=== PATIENT | female | born 1955 | race Caucasian/White ===

== ENCOUNTER 2021-03-01 13:28 | Outpatient (RCR) | payer MEDICARE, MEDICAID, SELFPAY ==
--- NOTE | 2021-03-01 14:42 | PTOPEVAL ---
PHYSICAL THERAPY WHEELCHAIR EVALUATION/DISCHARGE Thank you for referring Henna Melgar to [facility] [place].? Mrs. Melgar is a 65 y/o female evaluated today for an electric w/c. The patient was assessed using the Seating/Mobility Evaluation form-accessible in the scanned chart with details. The evaluation is complete and [facility] will be completing a home assessment and delivering her chair. D/C PT at this time. Please review, sign, date and return this plan of care. I agree with and certify the following plan of care. Referring Physician Date Attending Provider: Alysha Gordon NP
--- NOTE | 2021-03-01 14:58 | PTOPEVAL ---
PHYSICAL THERAPY WHEELCHAIR EVALUATION/DISCHARGE Thank you for referring Henna Melgar to [facility].? Mrs. Melgar is a 65 y/o female evaluated today for an electric w/c. The patient was assessed using the Seating/Mobility Evaluation form-accessible in the scanned chart with details. The evaluation is complete and [facility] will be completing a home assessment and delivering her chair. D/C PT at this time. Please review, sign, date and return this plan of care. I agree with and certify the following plan of care. Referring Physician Date Attending Provider: Alysha Gordon NP *PT Outpatient Evaluation Start: 03/01/21 14:37 Freq: Status: Active Protocol: Document 03/01/21 13:30 MLV (Rec: 03/01/21 14:58 MLV [id number]) Therapy Assessment Status Assessment Status Evaluation Pain Assessment Pain Scale Pain Scale Used Numeric (1 - 10) Self Report Pain Assessment Bilateral Leg(s) Reported Pain Level 9 Pain Description Aching,Burning Pain Frequency Chronic Lowest Pain Intensity 5 Pain Aggravating Factors Exercise/Activity,Prolonged Position,Supine Pain Score Pain Score 9: Self Report Interventions Used Interventions Used By Clinicians Education Pain Relief Interventions Used By Position Change,Sitting Patient PT Clinical Summary Mrs. Melgar is a 65 y/o female evaluated with a dx of lumbar spine fractures with neuropathy and multiple comorbidities. The evaluation is for an electric wheelchair assessment; pt has one prior but is now unable to be repaired and needs a new one. The patient was evaluated with mobility evaluation form-see scanned copy in chart for details. Pt qualifies for an electric chair and pt to be assessed in her home and receive a chair through [facility]. D/C PT following w/c assessment.
== END 2021-05-15 09:12 | disposition home or self-care (01) ==
LOC: ANHPT 13:28
PROVIDERS: PCP Internal Medicine; Visit Provider Nurse Practitioner
DX: S32.009S Unspecified fracture of unspecified lumbar vertebra, sequela (principal)
CPT/HCPCS: 97162

== ENCOUNTER 2024-05-17 07:05 | Inpatient (IN) | payer MEDICARE, MEDICAID, SELFPAY ==
[2024-05-16] VITALS (10 sets, daily range): BP systolic 100–106; BP diastolic 48–60; PULSE 113–130; RESP 18–22; TEMP 36.4–36.6; O2SAT 88–99; BMI 20.9
--- NOTE | 2024-05-16 18:00 | ADMGEN ---
This patient, Henna Arredondo Singler, was admitted to Medical Room 249-. Patient/family oriented to hospital policies and general routines including ID bracelet, bed and alarms, visiting hours, pain management, procedures, bathroom and other care routines, personal items, smoking policy, room service/diet, and visiting hours. Information on how to activate the Rapid Response Team has been discussed. Patient/Family are encouraged to report perceived risks to care and to ask questions if they do not understand what they are told or what they should do.
--- NOTE | 2024-05-16 18:56 | ECG_ITS ---
Test Date: 2024-05-16 19:10:54 Measurements Intervals [place] Rate: 116 P: 234 NM: 149 QRS: 204 QRSD: 83 T: 244 QT: 318 QTc: 443 Interpretive Statements ECTOPIC ATRIAL TACHYCARDIA MARKED RIGHT AXIS DEVIATION [QRS AXIS > 100] LOW QRS VOLTAGE IN EXTREMITY LEADS [QRS DEFLECTION < 0.5 mV IN LIMB LEADS] No previous ECG available for comparison Electronically Signed On 05-17-2024 12:59:38 CDT by Colton Wisdom M.D.
--- NOTE | 2024-05-16 18:57 | WPDCN ---
Assessment and Plan Assessment and plan (1) Sepsis: Code(s): A41.9 - Sepsis, unspecified organism Status: Acute Assessment and Plan: Patient meets sepsis criteria with tachycardia, tachypnea, hypotension, and leukocytosis in the setting of cholecystitis. Lactic acid levels within normal limits. Blood pressures are improving with IV fluid rehydration. Blood cultures have been obtained and are pending. Transfer to IMU for closer monitoring. (2) Cholecystitis with cholelithiasis: Code(s): K80.10 - Calculus of gallbladder with chronic cholecystitis without obstruction Status: Acute Assessment and Plan: Continue Zosyn. Plans for percutaneous cholecystostomy tube per Dr. Pham. (3) Acute respiratory failure with hypoxia: Code(s): J96.01 - Acute respiratory failure with hypoxia Status: Acute Assessment and Plan: Likely due to a combination of factors including IV narcotics, sepsis, and COPD. PE is considered given acute increase in oxygen requirements; CTA ordered. Continue to wean oxygen as tolerated. (4) Chronic obstructive pulmonary disease: Code(s): J44.9 - Chronic obstructive pulmonary disease, unspecified Status: Acute Assessment and Plan: Mild wheezing on exam but not significant. Scheduled bronchodilators; hold on steroids for now. (5) Coronary artery disease: Code(s): I25.10 - Atherosclerotic heart disease of hoh coronary artery without angina pectoris Status: Acute Assessment and Plan: Patient had a stent placed several years ago. No acute issues; she is denying chest pain. Plan Thank you for allowing us to participate in this patient's care. Please do not hesitate to contact us with any questions. HPI Data of Consult Date/Time: 05/16/24 19:00 Requesting Physician: Pepe Pham MD Consult Narrative Reason for consult: Medical management. Narrative: This is a 68-year-old female former smoker with chronic obstructive pulmonary disease, hyperlipidemia, and coronary artery disease with history of [place] and stent several years ago who is a direct admit to the medical floor this evening to Dr. Pham from the medical floor [facility] for acute cholecystitis with cholelithiasis. The patient presented to their facility yesterday with right upper quadrant pain and decreased appetite for nearly 1 weeks time. Pertinent labs at the time of her ER visit included WBC count of 16.5, hemoglobin 13.0, platelet 288, lactic acid 0.9, sodium 131, potassium 4.1, BUN 18, creatinine 0.35, AST 23, ALT 9, alkaline phosphatase 92, total bilirubin 0.7. CT of the abdomen/pelvis a large, distended gallbladder with stones and wall thickening consistent with cholecystitis. She was started on Zosyn and IV fluids and was admitted to their floor. Labs today showed an increase in her WBC count to 21.4 and a sodium of 136. This morning she was evaluated by their surgeon who recommends percutaneous cholecystostomy tube with plans for interval cholecystectomy at a later date. Transfer was initiated to [facility] as they do not have interventional radiology. According to the receiving nurse at [facility], the report she received from his nurse at [place] made it seem as though the patient was stable and appropriate for a medical floor. Before the patient left their facility, a rapid response was called as her blood pressure dropped while she was being transferred from her bed to the stretcher. EMS reports initial blood pressure of 79/45 for which she was given a 500 mL fluid bolus with improvement in her systolic pressures into the 90s over 50s. She was also tachycardic, tachypneic, and hypoxic. According to EMS, they were assured the patient was safe for transfer. EMS personnel phoned the receiving nurse here at [facility] when they were close to the hospital with updates on the patient's change in status, wondering if they should instead bring her
[2024-05-16 19:27] LABS: Alveolar/Arterial O2 Gradient 153.3 mmHg; Carboxyhemoglobin 1.1 % THb (0-2.0); Device NASAL CANNULA; Fractional Inspired Oxygen 40 %; HCO3 ABG 25.8 mEq/l (22.0-26.0); Methemoglobin ABG 0.1 %THb (0-1.5); Modified Allen's Test Pass; Oxygen Content ABG 16.9 %vol (16.0-22.0); Oxyhemoglobin 92.3 % THb (90.0-100.0); PO2 ABG 72.1 mmHg (80.0-100.0); Reduced Hemoglobin 6.5 %THb (0-5.0); Site Drawn RIGHT RADIAL; pH ABG 7.314 (7.350-7.450)
[2024-05-16] MEDS: IPRATROPIUM 0.5 MG/ALBUTEROL SULFATE 2.5 MG AMPUL.NEB 3 ML INHALATION (20:00)
[2024-05-16 20:25] LABS: Basophils Absolute Auto 0.1 K/mm3 (0.0-0.1); Basophils Percent Auto 0.2 % (0.2-1.2); Hematocrit 38.3 % (37.0-47.0); Hemoglobin 12.2 g/dL (12.0-15.0); Immature Granulocyte Percent A 0.9 % (0-0.5); Lymphocytes Percent Auto 1.2 % (18.3-44.2); Mean Corpuscular HGB Conc 31.9 g/dl (32-36); Mean Corpuscular Hemoglobin 28.6 pg (26-34); Mean Corpuscular Volume 89.9 fl (80-100); Mean Platelet Volume 10.5 fl (7.4-10.4); Monocytes Absolute Auto 2.4 K/mm3 (0.1-0.6); Neutrophils Absolute Auto 30.9 K/mm3 (1.3-6.7); Neutrophils Percent Auto 90.7 % (45.5-73.1); Platelet Count Result 315 k/mm3 (150-375); Red Blood Count 4.26 M/mm3 (4.2-5.4); Red Cell Distribution Width 13.5 % (11.5-14.5); White Blood Count 34.1 K/mm3 (4.5-10.0)
[2024-05-16 20:36] LABS: Alanine Aminotransferase 8 U/L (6-35); Albumin Level 3.2 g/dL (3.5-5.1); Alkaline Phosphatase 98 U/L (38-126); Anion Gap 5 mmol/L (4-12); Aspartate Amino Transferase 29 U/L (14-36); Bilirubin,Total 0.8 mg/dL (0.2-1.3); Blood Urea Nitrogen 20 mg/dL (7-17); Calcium 8.3 mg/dL (8.4-10.2); Carbon Dioxide 31 mmol/L (22-30); Chloride 102 mmol/L (98-107); Estimated CRCL calculation 69 ml/min; Estimated Glomerular Filt Rate > 60; Glucose 97 mg/dL (65-110); INR 1.5; Lactic Acid Reflex 1.2 mmol/L (0.7-2.0); Magnesium 2.4 mg/dL (1.6-2.3); Potassium 3.7 mmol/L (3.4-5.0); Prothrombin Time 18.2 Seconds (11.1-14.7); Sodium 138 mmol/L (137-145)
[2024-05-16 20:45] LABS: NT Pro B Type Natriuretic Pept 1490 pg/mL (19.9-100)
[2024-05-16 20:48] LABS: D Dimer 2.04 ug/mL (<0.48); Partial Thromboplastin Time 35.5 Seconds (22.3-36.8)
[2024-05-16 20:53] LABS: Procalcitonin 1.1 ng/mL
--- NOTE | 2024-05-16 21:04 | PC.NURSE ---
This patient, Henna Arredondo Singler, was received from - on 05/16/24 at 2035. Patient/family oriented to unit policies and routines
[2024-05-16] MEDS: SODIUM CHLORIDE 0.9% IV 1,000 ML 100 ML IV CONT (21:41)
[2024-05-16] MEDS: PIPERACILLN/TAZ 3.375GM/NS50ML 3.375 GM/50 ML BAG IVPB (21:43)
[2024-05-17] VITALS (20 sets, daily range): BP systolic 98–109; BP diastolic 42–53; PULSE 86–120; RESP 18–22; TEMP 36.6–37.1; O2SAT 91–98
--- NOTE | ~2024-05-17 | XR_ITS ---
EXAMINATION: XR barium swallow modified DATE: 05/20/2024 11:08 INDICATION: Cough. Dysphagia. TECHNIQUE: The patient was given barium-containing material of multiple consistencies to swallow by t marcell speech pathologist while I performed fluoroscopy. Fluoroscopy exposure time was 1.2 minutes. The n umber of fluoroscopy images saved to the PACS was 1. Dose-area product was 0.821 Gy-cm^2. FINDINGS: There is vallecular residue. No laryngeal penetration or aspiration. IMPRESSION: 1. No laryngeal penetration or aspiration. 2. Please refer to the speech therapy report for recommendations. Reviewed, dictated and finalized at location A.
--- NOTE | ~2024-05-17 | XR_ITS ---
XR chest 1V portable Ordering provider: Nataliia Man PA-C History: 68 years Female with . hypoxia . Comparison: None. FINDINGS: MEDIASTINUM: The cardiac silhouette is slightly LUNGS: No pneumothorax. Opacification in the left lung base is noted. Lucent areas are projected over the left lower chest which may indicate eventration of the diaphragm or diaphragmatic hernia CT eval uation advised. OTHER: No free air under the diaphragm. Postoperative changes in the spine. IMPRESSION: Left basal atelectasis versus pneumonia. Bowel shadows are projected over the left lower lobe area possibility of eventration of the left ashley diaphragm or diaphragmatic hernia is not excluded. CT evaluation advised. Reviewed, dictated and finalized at location A. IMPRESSION: Left basal atelectasis versus pneumonia. Bowel shadows are projected over the left lower lobe area possibility of eventr ation of the left hemidiaphragm or diaphragmatic hernia is not excluded. CT jaqui luation advised.
--- NOTE | ~2024-05-17 | CT_ITS ---
EXAMINATION: CTA chest abdomen pelvis DATE: 05/17/2024 03:31 INDICATION: Hypoxia, tachycardia and cholecystitis TECHNIQUE: Computed tomographic angiography (CTA) of the chest, abdomen and pelvis was performed with 150 cc of Omnipaque-350 intravenous contrast. Additional 3D reconstructions utilizing rotating maxim um intensity projection (MIP) were performed. Automated exposure control and iterative reconstruction technique were employed. The dose-length product was 314.86 mGy-cm. COMPARISON: None FINDINGS: Thoracic aorta is normal in caliber with small amount of nonhemodynamically significant atherosclerot ic plaque but no aneurysm or dissection. Severe emphysema. Calcified right lower lobe nodule along wi th calcite right hilar and mediastinal lymph nodes consistent with old granulomatous disease. Large h iatal hernia containing the majority of the stomach as well as the hepatic flexure of the colon. Ther e is compressive atelectasis at the basilar left lower lobe. Small bilateral pleural effusions. Heart size is normal. Atherosclerotic coronary artery calcifications. No pericardial effusion. No patholog ically enlarged abdominal or pelvic lymphadenopathy. There are calcified gallstones within the dilated gallbladder which demonstrate edematous wall thicke mattie and pericholecystic inflammatory stranding consistent with acute cholecystitis. This suggests an obstructing gallstone at the neck of the gallbladder heterogeneous attenuation of the liver which co uld be related to right hepatic lobe predominant hepatic steatosis or transient hepatic attenuation d ifference related to phase of contrast. Heterogeneous enhancement in the spleen also likely related t o phase of contrast. Pancreas, bilateral adrenal glands and kidneys are normal. Infrarenal IVC filter in expected position. Small amount of likely reactive ascites scattered through out the abdomen and pelvis. Marked sigmoid predominant diverticulosis without adjacent inflammatory s tranding to suggest diverticulitis. Moderate-sized right indirect inguinal hernia containing a small amount of ascites and a few loops of nonobstructed small bowel. No dilated bowel to suggest obstructi on. Bladder, uterus and adnexa are unremarkable. There is calcified atherosclerosis of the aorta and many of the other arteries. There is also presacral edema. Small fat-containing umbilical hernia. No pathologically enlarged abdominal or pelvic lymphadenopathy. Chronic T12 burst fracture and T11 and L1 compression fractures. There is been prior T12 laminectomy which is spanned by instrumented posterior spinal fusion with bilateral vertical debra and pedicle scre ws extending from T9 through L3 sparing the pedicles at T12. IMPRESSION: 1. Cholelithiasis and acute cholecystitis likely reactive small amount of ascites throughout the abdo men and pelvis. 2. Severe emphysema with small bilateral pleural effusions and atelectasis in the basilar left lower lobe. 3. Large hiatal hernia containing the majority the stomach and the splenic flexure of the colon. 4. Normal caliber aorta with no aneurysm or dissection but with prominent atherosclerosis along the a bdominal aorta and its major branches. 5. IVC filter in expected position. 6. Moderate size right inguinal hernia containing nonobstructed small bowel and small amount of ascit es. 7. small fat-containing umbilical hernia. 8. Prominent sigmoid diverticulosis. Reviewed, dictated and finalized at location A. IMPRESSION: 1. Cholelithiasis and acute cholecystitis likely reactive small amount of ascit es throughout the abdomen and pelvis. 2. Severe emphysema with small bilateral pleural effusions and atelectasis in t he basilar left lower lobe. 3. Large hiatal hernia containing the majority the stomach and the
--- NOTE | ~2024-05-17 | US_ITS ---
EXAMINATION: US perc cholecystostomy w imag DATE: 05/17/2024 13:28 INDICATION: Acute cholecystitis TECHNIQUE: The procedure including the risks and benefits was discussed with the patient. Risks discu ssed included bleeding including hemorrhage and bile peritonitis. Oral and written consent were obtai steffen. The patient was confirmed to be receiving appropriate antibiotic coverage. The skin overlying t he liver and gallbladder was prepped and draped in usual sterile fashion. Anesthetic was administere d with 1% lidocaine subcutaneously. Conscious sedation was provided by the anesthesiology service. An 8.5 Fr catheter was inserted through liver parenchyma into the gallbladder by trocar technique. Th e metal stiffener and trocar needle were removed, and the pigtail tip was locked. Bile was aspirated and sent for culture. The catheter was stitched to the skin with suture. Antibiotic ointment and a st erile dressing were applied. An additional adhesive fixation device was applied. There were no immedi ate complications. FINDINGS: The gallbladder is dilated with wall thickening and stones and sludge, consistent with acut e cholecystitis. Ultrasound images demonstrate the catheter within the gallbladder. 50 mL of dark mary ckish colored bile was aspirated and sent to the lab for Gram stain and aerobic, anaerobic and fungal cultures. Final images show the formed pigtail catheter tip in the gallbladder. IMPRESSION: 1. Successful ultrasound-guided cholecystostomy tube placement. 2. 50 mL bile was sent for aerobic, anaerobic, and fungal cultures. 3. The catheter will be managed by Dr. Pham. A catheter cholangiogram may be performed not less than 48 hours after tube placement if clinically indicated to assess cystic duct patency. If cholecystect yue is not eventually performed and the infectious episode has resolved, the tube may be removed over a guidewire, preferably not less than 3 weeks after placement to allow time for a mature catheter tr act to form to prevent bile leakage and peritonitis. Reviewed, dictated and finalized at location A. IMPRESSION: 1. Successful ultrasound-guided cholecystostomy tube placement. 2. 50 mL bile was sent for aerobic, anaerobic, and fungal cultures. 3. The catheter will be managed by Dr. Pham. A catheter cholangiogram may be pe rformed not less than 48 hours after tube placement if clinically indicated to assess cystic duct patency. If cholecystectomy is not eventually performed and the infectious episode has resolved, the tube may be removed over a guidewire, preferably not less than 3 weeks after placement to allow time for a mature ca theter tract to form to prevent bile leakage and peritonitis.
--- NOTE | ~2024-05-17 | XR_ITS ---
XR chest 1V portable 05/20/2024 13:14 Indication: Hypoxia and tachycardia Procedure: AP portable chest Comparison: 05/16/2024 Findings: Bibasilar airspace disease. There is residual contrast in the stomach. Elevated left diaphr agm. Small pleural effusions. No pneumothorax. Partial right lung resection. There are Castrejon debra s partially visualized. Impression: 1: Bibasilar airspace disease, compatible with pneumonia. Consider aspiration. 2: Small pleural effusions. Reviewed, dictated and finalized at location B. Impression: 1: Bibasilar airspace disease, compatible with pneumonia. Consider aspiration. 2: Small pleural effusions.
[2024-05-17] MEDS: PIPERACILLN/TAZ 3.375GM/NS50ML 3.375 GM/50 ML BAG IVPB ×4 (02:49→21:28)
[2024-05-17 04:18] LABS: Hematocrit 38.7 % (37.0-47.0); Hemoglobin 11.7 g/dL (12.0-15.0); Mean Corpuscular HGB Conc 30.2 g/dl (32-36); Mean Corpuscular Hemoglobin 28.2 pg (26-34); Mean Corpuscular Volume 93.3 fl (80-100); Mean Platelet Volume 10.4 fl (7.4-10.4); Platelet Count Result 308 k/mm3 (150-375); Red Blood Count 4.15 M/mm3 (4.2-5.4); Red Cell Distribution Width 13.6 % (11.5-14.5); White Blood Count 26.8 K/mm3 (4.5-10.0)
[2024-05-17 04:37] LABS: Alanine Aminotransferase 12 U/L (6-35); Albumin Level 2.9 g/dL (3.5-5.1); Alkaline Phosphatase 84 U/L (38-126); Anion Gap 5 mmol/L (4-12); Aspartate Amino Transferase 32 U/L (14-36); Bilirubin,Total 0.8 mg/dL (0.2-1.3); Blood Urea Nitrogen 22 mg/dL (7-17); Calcium 8.1 mg/dL (8.4-10.2); Carbon Dioxide 30 mmol/L (22-30); Chloride 103 mmol/L (98-107); Estimated CRCL calculation 69 ml/min; Estimated Glomerular Filt Rate > 60; Glucose 77 mg/dL (65-110); Potassium 3.2 mmol/L (3.4-5.0); Sodium 138 mmol/L (137-145)
[2024-05-17 06:03] LABS: Alveolar/Arterial O2 Gradient 110.8 mmHg; Base Excess ABG -0.2 mEq/l (+/-2.0); Fractional Inspired Oxygen 32 %; Modified Allen's Test Pass; Oxygen Content ABG 15.6 %vol (16.0-22.0); Oxygen Saturation ABG 92.8 % (95.0-100.0); Oxyhemoglobin 92.4 % THb (90.0-100.0); PCO2 ABG 43.4 mmHg (35.0-45.0); PO2 ABG 66.6 mmHg (80.0-100.0); PO2 FiO2 Ratio Arterial Blood 2.08 %; Site Drawn LEFT RADIAL; pH ABG 7.379 (7.350-7.450)
[2024-05-17 06:04] LABS: Device NASAL CANNULA
[2024-05-17] MEDS: SODIUM CHLORIDE 0.9% IV 1,000 ML 100 ML IV CONT (10:58)
[2024-05-17] MEDS: MORPHINE SULFATE (*CRX) 2 MG/ML INJ 1 MG IV PUSH (11:39)
--- NOTE | 2024-05-17 14:24 | PM.IMHP ---
H&P: HPI History of Present Illness Date/Time: 05/17/24 14:24 Chief Complaint: Acute cholecystitis secondary to cholelithiasis and sepsis Narrative: patient is a 5-year-old female who has had a 1 week history of epigastric and right upper quadrant abdominal pain. She presented to [facility] 2 days ago and was admitted to the hospital with findings of acute cholecystitis secondary to cholelithiasis on CT scan. [place] [address] but was afebrile and was not tachycardic. She was started on Zosyn for IV antibiotics and kept NPO. Her pain persisted through the night and she received multiple doses of morphine for pain control. The next day her white blood count was repeated and it was not elevated 21,000. Her pain was getting worse. I felt she would do much better with decompression of the gallbladder with placement of a cholecystostomy tube to drain the gallbladder rather than attempt a laparoscopic cholecystectomy which would have a high risk conversion to open cholecystectomy. Subsequent she was then transferred from [facility] to [facility] for further management due to the availability of an interventional radiologist here at [place]. She did get some pain medicine prior to being transferred and around she needed increased oxygen and has decreased level of consciousness. She was immediately evaluated by the hospitalist service when she was admitted and by that time her breathing was better and she was more responsive. Her white blood count was checked when she arrived and was 34,000. she was restarted on all the IV antibiotics and transferred to the IMU for further monitoring. Her pain was a better with doses of morphine. Blood cultures were obtained and she remained stable overnight. This morning she still had right upper quadrant abdominal pain. Her white blood cell count was still markedly elevated she was still having pretty severe right upper quadrant pain without generalized peritoneal signs. I talked to the our radiologist and he agreed that placement of a cholecystostomy tube would probably help her the most and so he arrange to have the cholecystostomy tube placed. This afternoon the patient feels much better and having last right upper quadrant pain since the cholecystostomy tube was placed. Cultures and Gram stain of the gallbladder fluid were ready sent. Drainage coming out of the cholecystostomy tube now was thick nonpurulent and nonbloody bile. She would like to have something to drink. Her previous medical history includes having had a myocardial infarction and placement of coronary stents in the past. She is not on a antiplatelet therapy other than a baby aspirin. She also was a smoker and has COPD. She states she quit smoking about 1 month ago. She denies any diabetes. Review of Systems Review of Systems: The remainder of the review of systems to include constitutional, HEENT, cardiovascular, respiratory, GI, , integumentary, musculoskeletal, endocrine, immunologic, hematologic, psychiatric, and neurologic are all negative except for which is mentioned above in the HPI. [facility] Past Medical History Medical History Broken back 2008 per patient COPD (chronic obstructive pulmonary disease) Depression Heavy tobacco smoker who smokes more than 10 cigarettes per day HTN (hypertension) Hyperlipidemia Surgical History Surgical History History of lung surgery lung resection 2002 History of surgery groin Hx of cataract surgery Hx of heart artery stent Family History Family History Father Type 2 diabetes mellitus Mother Acute myocardial infarction Sibling Multiple sclerosis Daughter Multiple sclerosis Social History Social History (Reviewed 05/17/24 @
[2024-05-17] MEDS: POTASSIUM CHLORIDE 20 MEQ PACKET (FOR LIQUID) 40 MEQ PO (15:53)
[2024-05-17] MEDS: KCL 20 MEQ/0.45% NS 1,000 ML 90 ML IV CONT (16:43)
[2024-05-17] MEDS: IPRATROPIUM 0.5 MG/ALBUTEROL SULFATE 2.5 MG AMPUL.NEB 3 ML INHALATION (19:14)
[2024-05-18] VITALS (25 sets, daily range): BP systolic 110–128; BP diastolic 42–62; PULSE 71–110; RESP 16–20; TEMP 36.1–36.6; O2SAT 91–98
[2024-05-18] MEDS: IPRATROPIUM 0.5 MG/ALBUTEROL SULFATE 2.5 MG AMPUL.NEB 3 ML INHALATION ×4 (02:00→21:00)
[2024-05-18] MEDS: PIPERACILLN/TAZ 3.375GM/NS50ML 3.375 GM/50 ML BAG IVPB ×4 (03:01→20:47)
[2024-05-18] MEDS: KCL 20 MEQ/0.45% NS 1,000 ML 90 ML IV CONT (04:37)
[2024-05-18 04:41] LABS: Basophils Absolute Auto 0.1 K/mm3 (0.0-0.1); Basophils Percent Auto 0.3 % (0.2-1.2); Eosinophils Percent Auto 0.2 % (0-4.4); Hematocrit 31.5 % (37.0-47.0); Hemoglobin 9.4 g/dL (12.0-15.0); Immature Granulocyte Absolute 0.12 K/mm3 (0.00-0.031); Immature Granulocyte Percent A 0.7 % (0-0.5); Lymphocytes Absolute Auto 1.19 K/mm3 (0.9-3.2); Lymphocytes Percent Auto 6.8 % (18.3-44.2); Mean Corpuscular HGB Conc 29.8 g/dl (32-36); Mean Corpuscular Hemoglobin 28.5 pg (26-34); Mean Corpuscular Volume 95.5 fl (80-100); Mean Platelet Volume 10.6 fl (7.4-10.4); Monocytes Absolute Auto 0.9 K/mm3 (0.1-0.6); Neutrophils Absolute Auto 15.2 K/mm3 (1.3-6.7); Platelet Count Result 290 k/mm3 (150-375); Red Cell Distribution Width 14.1 % (11.5-14.5); White Blood Count 17.5 K/mm3 (4.5-10.0)
[2024-05-18 05:05] LABS: Alanine Aminotransferase 6 U/L (6-35); Albumin Level 2.6 g/dL (3.5-5.1); Alkaline Phosphatase 72 U/L (38-126); Anion Gap 7 mmol/L (4-12); Anisocytosis 1+; Aspartate Amino Transferase 26 U/L (14-36); Bilirubin,Total 0.6 mg/dL (0.2-1.3); Blood Urea Nitrogen 22 mg/dL (7-17); Calcium 7.8 mg/dL (8.4-10.2); Carbon Dioxide 23 mmol/L (22-30); Chloride 108 mmol/L (98-107); Estimated CRCL calculation 84 ml/min; Estimated Glomerular Filt Rate > 60; Glucose 49 mg/dL (65-110); Hypochromasia 1+; Microcytosis 1+ (NORMAL); Platelet Estimate Adequate (Adequate); Potassium 3.8 mmol/L (3.4-5.0); Sodium 138 mmol/L (137-145)
[2024-05-18 05:06] LABS: Burr Cells 1+; Schistocytes None Seen
[2024-05-18] MEDS: DEXTROSE 50% 25 GM/50 ML SYRINGE IV PUSH (05:19)
[2024-05-18 05:22] LABS: Glucose Point of Care 38 mg/dl (65-105)
[2024-05-18 05:40] LABS: Glucose Point of Care 162 mg/dl (65-105)
[2024-05-18] MEDS: ENOXAPARIN 40 MG/0.4 ML SYRINGE SUB-Q (08:59)
[2024-05-18] MEDS: ACETAMINOPHEN 500 MG TABLET 1000 MG PO ×2 (11:45→20:47)
--- NOTE | 2024-05-18 14:10 | PM.PNGS ---
Progress Note: A&P Assessment and Plan (1) Cholecystitis with cholelithiasis: Code(s): K80.10 - Calculus of gallbladder with chronic cholecystitis without obstruction Status: Acute Assessment and Plan: Improving s/p cholecystostomy tube placement on 05/17. Bile cultures pending. Tolerating a clear liquid diet. WBC trending down and her abdominal pain is improving. No longer requiring IV Morphine. Continue IV antibiotics. Will advance to full liquids and decrease her IV fluids. Will transfer her out of the IMU to med/surg floor today with continuous pulse oximetry. Eventually, we would plan for an interval laparoscopic cholecystectomy in about 6 weeks once she is stabilized. (2) Sepsis: Code(s): A41.9 - Sepsis, unspecified organism Status: Acute Assessment and Plan: Resolving. Hemodynamically stable, tachycardia resolved. WBC trending down. Blood cultures are pending. Continue IV antibiotics to cover for the cholecystitis and Gram-negative organisms. (3) Chronic obstructive pulmonary disease: Code(s): J44.9 - Chronic obstructive pulmonary disease, unspecified Status: Acute Assessment and Plan: Currently on Duoneb and remains stable. Nursing weaning down her oxygen. Will keep continuous pulse oximetry initially since she has been desaturating at times. (4) Coronary arteriosclerosis: Code(s): I25.10 - Atherosclerotic heart disease of [place] coronary artery without angina pectoris Status: Acute Assessment and Plan: History of coronary artery stents. No complaints of chest pain. Plan I have discussed the patient's case and plan of care with Dr. Pham. Subjective Subjective Date/Time Seen: 05/18/24 14:10 Patient reports: tolerating liquids well and afebrile Interval history: Patient was a direct admission from [place] by Dr. Pham for acute cholecystitis, sepsis, and acute respiratory failure. Chart reviewed. S/p cholecystostomy tube placement yesterday. WBC trending down. Tachycardia improved. She reports feeling much better after the tube was placed. Her abdominal pain continues to improve. No nausea or vomiting. She is taking the clear liquids slow but doing well with them. She had confusion overnight and found to be hypoglycemic on morning labs. She was treated with D50 by the on-call Hospitalist overnight. She has no known history of diabetes. Her diet has been limited the past few days. Her confusion improved after her hypoglycemia was treated and repeat glucose was in the 160's. Her oxygen has been weaned down to 1 liter O2 nasal cannula. Per nursing, she has had her oxygen saturation dipping into the high 80's a few times this morning at rest. No other acute issues or other complaints at this time. Exam Const: General: comfortable and no acute distress Orientation/consciousness: patient oriented x3 Resp: Effort & Inspection: normal respiratory effort Auscultation: diminished lung sounds Cardio: Rate: regular rate Rhythm: regular rhythm GI: Inspection: non-distended GI Palp: Yes Soft to palpation, Yes Tenderness to palpation present (GI) (tenderness in the RUQ), No Guarding due to palpation present (GI) and Yes Hernia present (soft, nontender reducible right inguinal hernia) Auscultation: normal bowel sounds Other: Right upper quadrant cholecystostomy tube in place draining thick nonpurulent and nonbloody bile. Objective Data Vital Signs Vital Signs: Vital Signs - 24 hr 05/17/24 16:00 05/17/24 16:00 05/17/24 19:15 Temperature 98.2 F Pulse Rate 106 H 104 H Respiratory Rate 22 H 18 Blood Pressure 106/53 L Pulse Oximetry 96 96 Oxygen Delivery Nasal Cannula Oxygen Flow Rate 3 05/17/24 19:16 05/17/24 19:24 05/17/24 16:00 Temperature Pulse Rate 104 H 106 H 99 Respiratory Rate 18 18 Blood Pressure Pulse Oximetry 94 Oxygen Delivery Nasal Cannula Oxygen Flow Rate 3 05/17/24 18:00 05/17/24 19:47
[2024-05-18] MEDS: KCL 20 MEQ/D5/0.45% SOD CHL 1,000 ML 90 ML IV CONT (15:24)
[2024-05-18 16:51] LABS: Glucose Point of Care 94 mg/dl (65-105)
--- NOTE | 2024-05-18 18:43 | PC.NURSE ---
This patient, Henna Arredondo Singler, was transferred to [facility] on 05/18/24 at 1840. Personal belongings sent with patient. Report given to DANITA Maciel. Appropriate documentation sent with patient.
[2024-05-18 23:52] LABS: Glucose Point of Care 97 mg/dl (65-105)
[2024-05-19] VITALS (18 sets, daily range): BP systolic 115–132; BP diastolic 60–67; PULSE 72–96; RESP 16–20; TEMP 35.9–36.6; O2SAT 92–100
[2024-05-19] MEDS: PIPERACILLN/TAZ 3.375GM/NS50ML 3.375 GM/50 ML BAG IVPB ×2 (03:03→09:30)
[2024-05-19 06:35] LABS: Hemoglobin 10.3 g/dL (12.0-15.0); Mean Corpuscular HGB Conc 31.2 g/dl (32-36); Mean Corpuscular Hemoglobin 28.2 pg (26-34); Mean Corpuscular Volume 90.4 fl (80-100); Mean Platelet Volume 10.4 fl (7.4-10.4); Platelet Count Result 358 k/mm3 (150-375); Red Blood Count 3.65 M/mm3 (4.2-5.4); Red Cell Distribution Width 13.8 % (11.5-14.5); White Blood Count 12.6 K/mm3 (4.5-10.0)
[2024-05-19 06:56] LABS: Anion Gap 2 mmol/L (4-12); Blood Urea Nitrogen 11 mg/dL (7-17); Calcium 7.8 mg/dL (8.4-10.2); Carbon Dioxide 31 mmol/L (22-30); Chloride 104 mmol/L (98-107); Estimated CRCL calculation 107 ml/min; Estimated Glomerular Filt Rate > 60; Glucose 101 mg/dL (65-110); Potassium 3.2 mmol/L (3.4-5.0); Sodium 137 mmol/L (137-145)
[2024-05-19] MEDS: IPRATROPIUM 0.5 MG/ALBUTEROL SULFATE 2.5 MG AMPUL.NEB 3 ML INHALATION ×3 (07:14→21:48)
[2024-05-19 07:32] LABS: Glucose Point of Care 103 mg/dl (65-105)
[2024-05-19 07:37] LABS: Hemoglobin A1C 4.8 % (<5.7)
[2024-05-19] MEDS: ENOXAPARIN 40 MG/0.4 ML SYRINGE SUB-Q (09:30)
[2024-05-19] MEDS: KCL 20 MEQ/D5/0.45% SOD CHL 1,000 ML 50 ML IV CONT ×2 (09:30→12:02)
--- NOTE | 2024-05-19 10:34 | PM.PNGS ---
Progress Note: A&P Assessment and Plan (1) Cholecystitis with cholelithiasis: Code(s): K80.10 - Calculus of gallbladder with chronic cholecystitis without obstruction Status: Acute Assessment and Plan: Improving s/p cholecystostomy tube placement on 05/17. Bile cultures pending. WBC trending down to 12,000. Will switch to oral levofloxacin and metronidazole today. Family has concerns that she may be aspirating, so we will order speech therapy swallow eval. If is cleared by speech, then we can advance her diet and stop her IV fluids. I have also added Ensure compact supplements TID to help improve her nutrition. Albumin was 2.6 yesterday. Potassium low again today. Will replace with an additional 40 meq KCL. Repeat labs again tomorrow. Eventually, we would plan for an interval laparoscopic cholecystectomy in about 6 weeks once she is stabilized. (2) Sepsis: Code(s): A41.9 - Sepsis, unspecified organism Status: Acute Assessment and Plan: Resolved s/p source control. WBC trending down. Blood cultures are pending. Will switch to oral antibiotics today. (3) Chronic obstructive pulmonary disease: Code(s): J44.9 - Chronic obstructive pulmonary disease, unspecified Status: Acute Assessment and Plan: Continue nebulizers. Will keep continuous pulse oximetry. May need home O2 eval when getting closer to discharge. PT/OT has been ordered to evaluate for discharge planning. (4) Coronary arteriosclerosis: Code(s): I25.10 - Atherosclerotic heart disease of [place] coronary artery without angina pectoris Status: Acute Plan I have discussed the patient's case and plan of care with Dr. Pham. Subjective Subjective Date/Time Seen: 05/19/24 10:34 Patient reports: afebrile Interval history: Patient reports having multiple bowel movements overnight with some stool incontinence that caused her to try getting out of bed on her own without staff available. She did not have a fall but had to be laid flat to turn and get cleaned up. She apparently does not tolerate lying flat and sleeps with 4 pillows under her head to sleep at night. Per her granddaughter at the bedside, her O2 saturation went to the 70's and they had to up her oxygen. She was able to recover and she feels her shortness of breath got better after sitting back up. She reports an increase in her RUQ abdominal pain after all the movement with turning, but it is controlled this morning. No diarrhea. She also apparently had an episode of coughing after drinking juice per her family. They are concerned she is aspirating. She desaturated again after this episode per family. Patient denies any dysphagia or frequent coughing after swallowing. Exam Const: General: comfortable and no acute distress Orientation/consciousness: patient oriented x3 Resp: Effort & Inspection: normal respiratory effort Auscultation: diminished lung sounds Cardio: Rate: regular rate Rhythm: regular rhythm GI: Inspection: non-distended GI Palp: Yes Soft to palpation, Yes Tenderness to palpation present (GI) (tenderness in the entire right abdomen more focally in the RUQ), No Guarding due to palpation present (GI) and No Rebound tenderness present Auscultation: normal bowel sounds Other: RUQ cholecystostomy tube with bilious-appearing drainage, no purulent or bloody drainage. Dressing clean and intact. Extrem: General: no calf tenderness and no edema Objective Data Vital Signs Vital Signs: Vital Signs - 24 hr 05/18/24 11:40 05/18/24 12:00 05/18/24 14:24 Temperature 97.3 F L Pulse Rate 82 92 Respiratory Rate 16 18 Blood Pressure 110/52 L Pulse Oximetry 94 94 Oxygen Delivery Nasal Cannula Oxygen Flow Rate 2 05/18/24 14:32 05/18/24 15:31 05/18/24 12:00 Temperature 97 F L Pulse Rate 78 88 85 Respiratory Rate 18 16 Blood Pressure 122/62 Pulse Oximetry 92 Oxygen Delivery Oxygen Flow Rate 05/18/24 14:00
[2024-05-19 10:57] LABS: IFOB Positive Control Positive; Immunochemical Fecal Occult Bl Positive (N)
[2024-05-19 11:27] LABS: Glucose Point of Care 117 mg/dl (65-105)
[2024-05-19] MEDS: POTASSIUM CHLORIDE INJ 40 MEQ in SODIUM CHLORIDE 0.9% IV 500 ML 130 MEQ IVPB (12:03)
[2024-05-19] MEDS: ACETAMINOPHEN 500 MG TABLET 1000 MG PO (12:08)
[2024-05-19] MEDS: levoFLOXacin 750 MG TABLET PO (15:59)
[2024-05-19 16:09] LABS: Glucose Point of Care 78 mg/dl (65-105)
[2024-05-19] MEDS: metroNIDAZOLE 500 MG TABLET PO (20:58)
[2024-05-19] MEDS: PANTOPRAZOLE 40 MG TABLET PO (20:58)
[2024-05-19 21:23] LABS: Glucose Point of Care 136 mg/dl (65-105)
[2024-05-20] VITALS (19 sets, daily range): BP systolic 113–135; BP diastolic 52–74; PULSE 84–142; RESP 14–20; TEMP 36.2–36.6; O2SAT 90–96
--- NOTE | 2024-05-20 04:23 | PCRCNOTE ---
Patient refused 0200 updraft treatment due to wanting sleep. Treatment to resume at 0800.
[2024-05-20] MEDS: metroNIDAZOLE 500 MG TABLET PO ×3 (05:45→20:42)
[2024-05-20 06:21] LABS: Hematocrit 35.5 % (37.0-47.0); Hemoglobin 11.1 g/dL (12.0-15.0); Mean Corpuscular HGB Conc 31.3 g/dl (32-36); Mean Corpuscular Hemoglobin 28.2 pg (26-34); Mean Corpuscular Volume 90.1 fl (80-100); Mean Platelet Volume 9.9 fl (7.4-10.4); Platelet Count Result 389 k/mm3 (150-375); Red Blood Count 3.94 M/mm3 (4.2-5.4); Red Cell Distribution Width 13.7 % (11.5-14.5); White Blood Count 11.1 K/mm3 (4.5-10.0)
[2024-05-20 06:28] LABS: Anion Gap 1 mmol/L (4-12); Blood Urea Nitrogen 3 mg/dL (7-17); Calcium 8.4 mg/dL (8.4-10.2); Carbon Dioxide 34 mmol/L (22-30); Chloride 103 mmol/L (98-107); Estimated CRCL calculation 107 ml/min; Estimated Glomerular Filt Rate > 60; Glucose 108 mg/dL (65-110); Magnesium 1.7 mg/dL (1.6-2.3); Potassium 3.8 mmol/L (3.4-5.0); Sodium 138 mmol/L (137-145)
[2024-05-20] MEDS: IPRATROPIUM 0.5 MG/ALBUTEROL SULFATE 2.5 MG AMPUL.NEB 3 ML INHALATION ×3 (07:23→19:48)
[2024-05-20 08:23] LABS: Glucose Point of Care 98 mg/dl (65-105)
--- NOTE | 2024-05-20 08:50 | PCSTNOTE ---
Please refer to the Bedside Swallow Evaluation in the EMR. Please note, silent aspiration cannot be ruled out at bedside.
[2024-05-20] MEDS: ACETAMINOPHEN 500 MG TABLET 1000 MG PO (08:51)
[2024-05-20] MEDS: levoFLOXacin 750 MG TABLET PO (08:52)
[2024-05-20] MEDS: KCL 20 MEQ/D5/0.45% SOD CHL 1,000 ML 50 ML IV CONT (08:53)
[2024-05-20] MEDS: PANTOPRAZOLE 40 MG TABLET PO ×2 (08:54→20:42)
[2024-05-20] MEDS: ENOXAPARIN 40 MG/0.4 ML SYRINGE SUB-Q (08:59)
--- NOTE | 2024-05-20 11:14 | PCSTNOTE ---
Please refer to the Modified Barium Swallow Evaluation in the EMR.
[2024-05-20 11:45] LABS: Glucose Point of Care 154 mg/dl (65-105)
--- NOTE | 2024-05-20 12:25 | ECG_ITS ---
Test Date: 2024-05-20 12:39:52 Measurements Intervals [place] Rate: 138 P: 79 AR: 142 QRS: 79 QRSD: 77 T: 52 QT: 286 QTc: 434 Interpretive Statements SINUS TACHYCARDIA LOW QRS VOLTAGE IN EXTREMITY LEADS [QRS DEFLECTION < 0.5 mV IN LIMB LEADS] PATTERN CONSISTENT WITH PULMONARY DISEASE NONSPECIFIC ST ABNORMALITY ABNORMAL ECG Compared to ECG 05/16/2024 19:10:54 Right-axis deviation no longer present Electronically Signed On 05-20-2024 15:16:58 CDT by Haresh Ha M.D.
--- NOTE | 2024-05-20 13:35 | PM.PNGS ---
Progress Note: A&P Assessment and Plan (1) Cholecystitis with cholelithiasis: Code(s): K80.10 - Calculus of gallbladder with chronic cholecystitis without obstruction Status: Acute Assessment and Plan: Improving s/p cholecystostomy tube placement on 05/17. Bile cultures pending. WBC trending down to 11,000. Switched to oral levofloxacin and metronidazole She passed the modified barium swallow study. Will advance to a low fat diet with supplements. IV fluids will be stopped. PT/OT evaluating patient. PT recommending home health and will continue to follow while she is inpatient. (2) Sepsis: Code(s): A41.9 - Sepsis, unspecified organism Status: Acute Assessment and Plan: Resolved s/p source control. WBC trending down. Blood cultures are pending. Switched to oral antibiotics and doing well. (3) Chronic obstructive pulmonary disease: Code(s): J44.9 - Chronic obstructive pulmonary disease, unspecified Status: Acute Assessment and Plan: Continue nebulizers. Will keep continuous pulse oximetry. (4) Coronary arteriosclerosis: Code(s): I25.10 - Atherosclerotic heart disease of [place] coronary artery without angina pectoris Status: Acute (5) Tachycardia: Code(s): R00.0 - Tachycardia, unspecified Status: Acute Assessment and Plan: Patient's heart rate was up to the 140-150's this morning. She is asymptomatic and BP stable. EKG showed sinus tachycardia. We asked the Hospitalist to again consult on the patient and follow. They will be evaluating her today. Plan I have discussed the patient's case and plan of care with Dr. Pham. Subjective Subjective Date/Time Seen: 05/20/24 13:35 Interval history: I was called by nursing this morning that patient's heart rate was up in the 140's-150's. I ordered and EKG and came to the bedside. She appears comfortable without any acute distress. She denies any shortness of breath, chest pain or pressure, or light-headedness. She has complaints of pain at the RUQ pigtail catheter site, but no other complaints. She is tolerating her diet. She passed her modified barium swallow study. Review of Systems Review of Systems: All systems reviewed & are unremarkable except as noted in HPI and below Exam Const: General: comfortable and no acute distress Resp: Effort & Inspection: normal respiratory effort Auscultation: diminished lung sounds Cardio: Rate: tachycardic Rhythm: regular rhythm GI: Inspection: non-distended GI Palp: Yes Soft to palpation, Yes Tenderness to palpation present (GI) (RUQ) and No Guarding due to palpation present (GI) Auscultation: normal bowel sounds Other: RUQ cholecystostomy tube with scant bilious-appearing drainage, no purulent or bloody drainage. Dressing clean and intact. Extrem: General: no calf tenderness and no edema Objective Data Vital Signs Vital Signs: Vital Signs - 24 hr 05/19/24 13:41 05/19/24 13:49 05/19/24 14:00 Temperature 96.7 F L Pulse Rate 89 87 91 Respiratory Rate 20 20 20 Blood Pressure 126/60 Pulse Oximetry 98 Oxygen Delivery Oxygen Flow Rate Fraction of Inspired Oxygen 05/19/24 14:14 05/19/24 14:29 05/19/24 16:00 Temperature 96.7 F L Pulse Rate 91 96 Respiratory Rate 20 Blood Pressure 132/67 Pulse Oximetry 100 Oxygen Delivery Nasal Cannula Oxygen Flow Rate 2 Fraction of Inspired Oxygen 05/19/24 20:20 05/19/24 21:48 05/19/24 21:52 Temperature Pulse Rate 95 95 Respiratory Rate 20 Blood Pressure Pulse Oximetry 96 97 Oxygen Delivery Nasal Cannula Nasal Cannula Oxygen Flow Rate 2 2 Fraction of Inspired Oxygen 28 05/19/24 21:55 05/20/24 00:00 05/19/24 20:00 Temperature 97.2 F L Pulse Rate 91 92 90 Respiratory Rate 20 16 Blood Pressure 134/52 L Pulse Oximetry 96 Oxygen Delivery Oxygen Flow Rate Fraction of Inspired Oxygen 05/20/24 00:00 05/20/24 04:00 06
[2024-05-20] MEDS: METOPROLOL TARTRATE INJ 5 MG/5 ML VIAL IV PUSH (13:48)
[2024-05-20] MEDS: MAGNESIUM SULF 4 GM/WATER100ML 4 GM/100 ML BAG IVPB (13:49)
--- NOTE | 2024-05-20 14:21 | PM.IMPN ---
Progress Note: A&P Assessment and Plan (1) Sepsis: Code(s): A41.9 - Sepsis, unspecified organism Status: Acute Assessment and Plan: Patient meets sepsis criteria with tachycardia, tachypnea, hypotension, and leukocytosis in the setting of cholecystitis. Lactic acid levels within normal limits. Blood pressures are improving with IV fluid rehydration. Blood cultures have been obtained and NGTD Related to cholecystitis Continue levofloxacin and flagyl Perc drain in place Trend drainage (2) Cholecystitis with cholelithiasis: Code(s): K80.10 - Calculus of gallbladder with chronic cholecystitis without obstruction Status: Acute Assessment and Plan: Continue Zosyn. Plans for percutaneous cholecystostomy tube per Dr. Pham. See above (3) Acute respiratory failure with hypoxia: Code(s): J96.01 - Acute respiratory failure with hypoxia Status: Acute Assessment and Plan: Likely due to a combination of factors including IV narcotics, sepsis, and COPD. PE is considered given acute increase in oxygen requirements; CTA indicated bilateral pleural effusions Continue to wean oxygen as tolerated. Chest xray shows small bilateral pleural effusions ST consulted (4) Chronic obstructive pulmonary disease: Code(s): J44.9 - Chronic obstructive pulmonary disease, unspecified Status: Acute Assessment and Plan: Mild wheezing on exam but not significant. Continue neb treatments No indication of exacerbation hold on steroids for now (5) Coronary artery disease: Code(s): I25.10 - Atherosclerotic heart disease of [place] coronary artery without angina pectoris Status: Acute Assessment and Plan: Patient had a stent placed several years ago. No acute issues; she is denying chest pain. (6) Tachycardia: Code(s): R00.0 - Tachycardia, unspecified Status: Acute Assessment and Plan: HR is 140s Metoprolol IV ordered PO metoprolol 25 mg PO BID for now Rate has improved could be related to possible aspiration PNA Continue cardiac monitoring (7) Aspiration pneumonia: Code(s): J69.0 - Pneumonitis due to inhalation of food and vomit Status: Acute Assessment and Plan: Chest xray shows aspiration PNA Continue levaquin and flagyl Trend respiratory status ST ordered Trend labs and respiratory status Plan Time Spent With Patient Time: 43 minutes Time with patient: Greater than 35 minutes Subjective Date/time seen: 05/20/24 14:21 Interval history: 05/16/24 19:00 This is a 68-year-old female former smoker with chronic obstructive pulmonary disease, hyperlipidemia, and coronary artery disease with history of [place] and stent several years ago who is a direct admit to the medical floor this evening to Dr. Pham from the medical floor [facility] for acute cholecystitis with cholelithiasis. The patient presented to their facility yesterday with right upper quadrant pain and decreased appetite for nearly 1 weeks time. Pertinent labs at the time of her ER visit included WBC count of 16.5, hemoglobin 13.0, platelet 288, lactic acid 0.9, sodium 131, potassium 4.1, BUN 18, creatinine 0.35, AST 23, ALT 9, alkaline phosphatase 92, total bilirubin 0.7. CT of the abdomen/pelvis a large, distended gallbladder with stones and wall thickening consistent with cholecystitis. She was started on Zosyn and IV fluids and was admitted to their floor. Labs today showed an increase in her WBC count to 21.4 and a sodium of 136. This morning she was evaluated by their surgeon who recommends percutaneous cholecystostomy tube with plans for interval cholecystectomy at a later date. Transfer was initiated to [facility] as they do not have interventional radiology. According to the receiving nurse at [facility], the report she received from his nurse at [place] made it se
[2024-05-20] MEDS: METOPROLOL TARTRATE 25 MG TABLET PO ×2 (14:28→20:41)
[2024-05-20 16:35] LABS: Glucose Point of Care 117 mg/dl (65-105)
[2024-05-20] MEDS: LACTATED RINGERS 1,000 ML 999 ML IV CONT ×2 (17:47→18:20)
[2024-05-20 20:11] LABS: Glucose Point of Care 85 mg/dl (65-105)
[2024-05-21] VITALS (17 sets, daily range): BP systolic 103–106; BP diastolic 57–62; PULSE 79–101; RESP 14–20; TEMP 36.3–36.9; O2SAT 87–96
[2024-05-21] MEDS: IPRATROPIUM 0.5 MG/ALBUTEROL SULFATE 2.5 MG AMPUL.NEB 3 ML INHALATION ×3 (02:02→14:10)
[2024-05-21] MEDS: metroNIDAZOLE 500 MG TABLET PO ×2 (05:56→13:44)
[2024-05-21 07:06] LABS: Basophils Percent Auto 0.3 % (0.2-1.2); Eosinophils Absolute Auto 0.2 K/mm3 (0-0.3); Eosinophils Percent Auto 1.9 % (0-4.4); Hematocrit 35.7 % (37.0-47.0); Hemoglobin 11.3 g/dL (12.0-15.0); Immature Granulocyte Absolute 0.04 K/mm3 (0.00-0.031); Immature Granulocyte Percent A 0.4 % (0-0.5); Lymphocytes Absolute Auto 1.82 K/mm3 (0.9-3.2); Lymphocytes Percent Auto 16.4 % (18.3-44.2); Mean Corpuscular HGB Conc 31.7 g/dl (32-36); Mean Corpuscular Hemoglobin 28.4 pg (26-34); Mean Corpuscular Volume 89.7 fl (80-100); Mean Platelet Volume 9.8 fl (7.4-10.4); Monocytes Absolute Auto 0.6 K/mm3 (0.1-0.6); Monocytes Percent Auto 5.1 % (2.6-8.5); Neutrophils Absolute Auto 8.5 K/mm3 (1.3-6.7); Neutrophils Percent Auto 75.9 % (45.5-73.1); Platelet Count Result 402 k/mm3 (150-375); Red Blood Count 3.98 M/mm3 (4.2-5.4); Red Cell Distribution Width 14.1 % (11.5-14.5); White Blood Count 11.1 K/mm3 (4.5-10.0)
[2024-05-21 07:21] LABS: Alanine Aminotransferase 10 U/L (6-35); Albumin Level 2.8 g/dL (3.5-5.1); Alkaline Phosphatase 74 U/L (38-126); Anion Gap 2 mmol/L (4-12); Aspartate Amino Transferase 27 U/L (14-36); Bilirubin,Total 0.3 mg/dL (0.2-1.3); Blood Urea Nitrogen 5 mg/dL (7-17); Calcium 8.4 mg/dL (8.4-10.2); Carbon Dioxide 34 mmol/L (22-30); Chloride 104 mmol/L (98-107); Estimated CRCL calculation 84 ml/min; Estimated Glomerular Filt Rate > 60; Glucose 110 mg/dL (65-110); Magnesium 2.1 mg/dL (1.6-2.3); Potassium 3.8 mmol/L (3.4-5.0); Sodium 140 mmol/L (137-145)
[2024-05-21 07:31] LABS: Glucose Point of Care 112 mg/dl (65-105)
[2024-05-21] MEDS: METOPROLOL TARTRATE 25 MG TABLET PO (09:34)
[2024-05-21] MEDS: levoFLOXacin 750 MG TABLET PO (09:34)
[2024-05-21] MEDS: PANTOPRAZOLE 40 MG TABLET PO (09:34)
[2024-05-21] MEDS: ENOXAPARIN 40 MG/0.4 ML SYRINGE SUB-Q (09:34)
--- NOTE | 2024-05-21 10:15 | PM.PNGS ---
Progress Note: A&P Assessment and Plan (1) Cholecystitis with cholelithiasis: Code(s): K80.10 - Calculus of gallbladder with chronic cholecystitis without obstruction Status: Acute Assessment and Plan: Improving s/p cholecystostomy tube placement on 05/17. Bile cultures pending. WBC 11,000 today, overall downward trend. Switched to oral levofloxacin and metronidazole. She is tolerating a low fat diet. PT recommending home health, which [facility] has set up for discharge. Will have the nurse educate the patient and her family on care for the cholecystostomy tube. We will have her follow-up with Dr. Pham in 2 weeks after discharge and eventually get a cholangiogram through the tube as an outpatient. (2) Sepsis: Code(s): A41.9 - Sepsis, unspecified organism Status: Acute Assessment and Plan: Resolved s/p source control. WBC trending down. Blood cultures are pending. Switched to oral antibiotics and doing well. (3) Chronic obstructive pulmonary disease: Code(s): J44.9 - Chronic obstructive pulmonary disease, unspecified Status: Acute Assessment and Plan: Continue nebulizers. Appreciate Hospitalist help. Still on 1-2 liters of O2. If unable to wean O2, then she may need a home O2 eval prior to discharge. (4) Tachycardia: Code(s): R00.0 - Tachycardia, unspecified Status: Acute Assessment and Plan: Resolved. She has been started on metoprolol. Appreciate Hospitalist recommendations. (5) Aspiration pneumonia: Code(s): J69.0 - Pneumonitis due to inhalation of food and vomit Status: Acute Assessment and Plan: Chest x-ray suggests aspiration pneumonia. Currently on levofloxacin. Sputum cultures pending. (6) Anemia: Code(s): D64.9 - Anemia, unspecified Status: Acute Assessment and Plan: Hemoglobin on admission 12.2 and dropped as low as 9.4 on 05/18. Staff is now reporting possible blood in her stool two nights ago. Stool occult ordered by Hospitalist and positive. She is no longer having any blood bowel movements. Started on IV Protonix and will plan to discharge on oral Protonix. It is not emergent, but she will eventually need to f/u with GI to be evaluated as an outpatient. Hgb stable the past few days and is 11.3 this morning. (7) Coronary arteriosclerosis: Code(s): I25.10 - Atherosclerotic heart disease of [place] coronary artery without angina pectoris Status: Acute Plan I have discussed the patient's case and plan of care with Dr. Pham. Subjective Subjective Date/Time Seen: 05/21/24 10:15 Patient reports: no new complaints, feels better, tolerating a regular diet, flatus, bowel movement and afebrile Interval history: Patient seen this morning while working with PT. She is feeling well. Her abdominal pain is gone. She is feeling much better. No nausea or vomiting. Her appetite is better this morning and she ate nearly all of her breakfast. She denies any shortness of breath or chest pain. Per nursing, she had some blood in her stool two nights ago and the Hospitalist was notified and ordered a stool occult which was positive. She is not longer having any blood bowel movements. BMs are normal and brown per staff. Exam Const: General: comfortable and no acute distress Orientation/consciousness: patient oriented x3 GI: Inspection: non-distended GI Palp: Yes Soft to palpation, No Tenderness to palpation present (GI), No Guarding due to palpation present (GI) and No Rebound tenderness present Auscultation: normal bowel sounds Other: RUQ cholecystostomy tube with scant bilious-appearing drainage, no purulent or bloody drainage. Dressing clean and intact. Objective Data Vital Signs Vital Signs: Vital Signs - 24 hr 05/20/24 13:36 05/20/24 13:45 05/20/24 13:48 Temperature Pulse Rate 104 H 115 H 136 H Respiratory Rate 20 20 Blood Pressure Pulse Oximetry Oxygen Delivery Oxygen Flow Rate
--- NOTE | 2024-05-21 11:13 | P.PNIM_ITS ---
Progress Note: A&P Assessment and Plan (1) Sepsis: Code(s): A41.9 - Sepsis, unspecified organism Status: Acute Assessment and Plan: * Patient meets sepsis criteria with tachycardia, tachypnea, hypotension, and l eukocytosis in the setting of cholecystitis. * Lactic acid levels within normal limits. * Blood pressures are improving with IV fluid rehydration. * Blood cultures have been obtained and NGTD * Related to cholecystitis * Continue levofloxacin and flagyl * Perc drain in place * Trend drainage (2) Cholecystitis with cholelithiasis: Code(s): K80.10 - Calculus of gallbladder with chronic cholecystitis without obstruction Status: Acute Assessment and Plan: * Continue Zosyn. * Plans for percutaneous cholecystostomy tube per Dr. Pham. * See above (3) Acute respiratory failure with hypoxia: Code(s): J96.01 - Acute respiratory failure with hypoxia Status: Acute Assessment and Plan: * Likely due to a combination of factors including IV narcotics, sepsis, and COPD. * PE is considered given acute increase in oxygen requirements; CTA indicated bilateral pleural effusions * Continue to wean oxygen as tolerated. * Chest xray shows small bilateral pleural effusions * ST consulted * Home oxygen eval * Will need home oxygen (4) Chronic obstructive pulmonary disease: Code(s): J44.9 - Chronic obstructive pulmonary disease, unspecified Status: Acute Assessment and Plan: * Mild wheezing on exam but not significant. * Continue neb treatments * No indication of exacerbation * hold on steroids for now (5) Coronary artery disease: Code(s): I25.10 - Atherosclerotic heart disease of [place] coronary artery without angina pectoris Status: Acute Assessment and Plan: * Patient had a stent placed several years ago. * No acute issues; she is denying chest pain. (6) Tachycardia: Code(s): R00.0 - Tachycardia, unspecified Status: Acute Assessment and Plan: * HR is 140s * Metoprolol IV ordered * PO metoprolol 25 mg PO BID for now * Rate has improved * could be related to possible aspiration PNA * Continue cardiac monitoring * Resolved current heart rate is 70-80s (7) Aspiration pneumonia: Code(s): J69.0 - Pneumonitis due to inhalation of food and vomit Status: Acute Assessment and Plan: * Chest xray shows aspiration PNA * Continue levaquin and flagyl for roughly 7-10 days * Trend respiratory status * ST ordered * Trend labs and respiratory status Plan Time Spent With Patient Time: 51 minutes Time with patient: Greater than 35 minutes Subjective Date/time seen: 05/21/24 11:13 Interval history: 05/16/24 19:00 This is a 68-year-old female former smoker with chronic obstructive pulmonary disease, hyperlipidemia, and coronary artery disease with history of [place] and stent several years ago who is a direct admit to the medical floor this evening to Dr. Pham from the medical floor [facility] for acute cholecystitis with cholelithiasis. The patient presented to their facility yesterday with right upper quadrant pain and decreased appetite for nearly 1 weeks time. Pertinent labs at the time of her ER visit included WBC count of 16.5, hemoglobin 13.0, platelet 288, lactic acid 0.9
--- NOTE | 2024-05-21 11:13 | PM.IMPN ---
Progress Note: A&P Assessment and Plan (1) Sepsis: Code(s): A41.9 - Sepsis, unspecified organism Status: Acute Assessment and Plan: Patient meets sepsis criteria with tachycardia, tachypnea, hypotension, and leukocytosis in the setting of cholecystitis. Lactic acid levels within normal limits. Blood pressures are improving with IV fluid rehydration. Blood cultures have been obtained and NGTD Related to cholecystitis Continue levofloxacin and flagyl Perc drain in place Trend drainage (2) Cholecystitis with cholelithiasis: Code(s): K80.10 - Calculus of gallbladder with chronic cholecystitis without obstruction Status: Acute Assessment and Plan: Continue Zosyn. Plans for percutaneous cholecystostomy tube per Dr. Pham. See above (3) Acute respiratory failure with hypoxia: Code(s): J96.01 - Acute respiratory failure with hypoxia Status: Acute Assessment and Plan: Likely due to a combination of factors including IV narcotics, sepsis, and COPD. PE is considered given acute increase in oxygen requirements; CTA indicated bilateral pleural effusions Continue to wean oxygen as tolerated. Chest xray shows small bilateral pleural effusions ST consulted Home oxygen eval Will need home oxygen (4) Chronic obstructive pulmonary disease: Code(s): J44.9 - Chronic obstructive pulmonary disease, unspecified Status: Acute Assessment and Plan: Mild wheezing on exam but not significant. Continue neb treatments No indication of exacerbation hold on steroids for now (5) Coronary artery disease: Code(s): I25.10 - Atherosclerotic heart disease of [place] coronary artery without angina pectoris Status: Acute Assessment and Plan: Patient had a stent placed several years ago. No acute issues; she is denying chest pain. (6) Tachycardia: Code(s): R00.0 - Tachycardia, unspecified Status: Acute Assessment and Plan: HR is 140s Metoprolol IV ordered PO metoprolol 25 mg PO BID for now Rate has improved could be related to possible aspiration PNA Continue cardiac monitoring Resolved current heart rate is 70-80s (7) Aspiration pneumonia: Code(s): J69.0 - Pneumonitis due to inhalation of food and vomit Status: Acute Assessment and Plan: Chest xray shows aspiration PNA Continue levaquin and flagyl for roughly 7-10 days Trend respiratory status ST ordered Trend labs and respiratory status Plan Time Spent With Patient Time: 51 minutes Time with patient: Greater than 35 minutes Subjective Date/time seen: 05/21/24 11:13 Interval history: 05/16/24 19:00 This is a 68-year-old female former smoker with chronic obstructive pulmonary disease, hyperlipidemia, and coronary artery disease with history of DC and stent several years ago who is a direct admit to the medical floor this evening to Dr. Pham from the medical floor [facility] for acute cholecystitis with cholelithiasis. The patient presented to their facility yesterday with right upper quadrant pain and decreased appetite for nearly 1 weeks time. Pertinent labs at the time of her ER visit included WBC count of 16.5, hemoglobin 13.0, platelet 288, lactic acid 0.9, sodium 131, potassium 4.1, BUN 18, creatinine 0.35, AST 23, ALT 9, alkaline phosphatase 92, total bilirubin 0.7. CT of the abdomen/pelvis a large, distended gallbladder with stones and wall thickening consistent with cholecystitis. She was started on Zosyn and IV fluids and was admitted to their floor. Labs today showed an increase in her WBC count to 21.4 and a sodium of 136. This morning she was evaluated by their surgeon who recommends percutaneous cholecystostomy tube with plans for interval cholecystectomy at a later date. Transfer was initiated to [facility] as they do not
--- NOTE | 2024-05-21 11:24 | HOMEO2EVAL ---
Evaluation was performed at [facility] Home Oxygen Evaluation RC: Home Oxygen (O2) Evaluation Start: 05/21/24 10:50 Freq: ONCE Status: Active Protocol: RPE Activity Type Activity Date Activity User E-sign Co-sign Detail Recorded Client Recorded Date Recorded By Document 05/21/24 10:50 [email or web address] [id number] 05/21/24 11:24 DJO Document 05/21/24 10:55 [email or web address] [email or web address] 05/21/24 11:24 DJO Document 05/21/24 11:00 [email or web address] [email or web address] 05/21/24 11:24 DJO Document 05/21/24 11:15 [email or web address] [email or web address] 05/21/24 11:24 DJO 05/21/24 05/21/24 05/21/24 10:50 10:55 11:00 Home O2 Evaluation [Oxygen] -Test Phase Resting Resting Exercise -Oxygen Delivery Room Air Nasal Cannula Nasal Cannula -Oxygen Flow Rate (L/min) 1 1 [Pulse Oximetry] -Pulse Oximetry (90-100 %) 87 L 92 90 [Pulse Rate] -Pulse Rate (60-100 beats/min) 88 84 90 [Evaluation] -Activity Tolerance Poor [Charges] -Evaluation Charges O2 Evaluation by Pulmonary 05/21/24 11:15 Home O2 Evaluation [Oxygen] -Test Phase Resting -Oxygen Delivery Nasal Cannula -Oxygen Flow Rate (L/min) 1 [Pulse Oximetry] -Pulse Oximetry (90-100 %) 92 [Pulse Rate] -Pulse Rate (60-100 beats/min) 82 [Evaluation] -Activity Tolerance [Charges] -Evaluation Charges
[2024-05-21 11:50] LABS: Glucose Point of Care 118 mg/dl (65-105)
--- NOTE | 2024-05-21 13:22 | PCRCNOTE ---
HOME O2 EVAL COMPLETE, 1L AT REST AND ACTIVITY. SET UP WITH [facility]. TANK IN ROOM FOR DISCHARGE
--- NOTE | 2024-05-21 14:44 | PM.DS ---
DS: Admitting Diagnosis Discharge Date 05/21/24 Admitting Diagnosis Acute calculous cholecystitis Sepsis DS: Discharge Diagnosis Discharge Diagnosis (1) Cholecystitis with cholelithiasis: Code(s): K80.10 - Calculus of gallbladder with chronic cholecystitis without obstruction Status: Acute (2) Sepsis: Code(s): A41.9 - Sepsis, unspecified organism Status: Acute Assessment and Plan: Resolved. Blood cultures no growth. (3) Acute respiratory failure with hypoxia: Code(s): J96.01 - Acute respiratory failure with hypoxia Status: Acute (4) Chronic obstructive pulmonary disease: Code(s): J44.9 - Chronic obstructive pulmonary disease, unspecified Status: Acute Assessment and Plan: Stable. Patient received Nebulizers during her hospitalization. She did have acute respiratory failure with hypoxia on arrival and a CTA chest was ordered which showed no PE, but severe emphysema, and a large hiatal hernia. Follow-up with PCP on discharge. (5) Coronary arteriosclerosis: Code(s): I25.10 - Atherosclerotic heart disease of [place] coronary artery without angina pectoris Status: Acute Assessment and Plan: History of coronary artery stents. No acute issues, remained stable. (6) Tachycardia: Code(s): R00.0 - Tachycardia, unspecified Status: Acute Assessment and Plan: Patient initially had mild tachycardia that was felt to be related to her sepsis and acute infection. This improved as her sepsis and cholecystitis was treated. Then on 05/20/24, her heart rate went up into the 140-150's and an EKG showed sinus tachycardia. Hospitalist was consulted and she was treated with an IV beta jolanta and started on oral metoprolol. She was also given IV fluids. Her heart rate improved and tachycardia resolved by the following day. Hospitalist felt she was stable for discharge and will continue to the metoprolol on discharge. (7) Aspiration pneumonia: Code(s): J69.0 - Pneumonitis due to inhalation of food and vomit Status: Acute Assessment and Plan: Patient with hypoxia and tachycardia on 05/20. Prior to this, there was concern by family that she may be aspirating and speech therapy was consulted. They recommended barium swallow eval, which she passed without any evidence of aspiration, and her diet was advanced without restrictions. When she had her episode of tachycardia, chest x-ray was ordered and suggested possible aspiration pneumonia. She was also still requiring oxygen 1-2 liters nasal cannula. She is covered with oral antibiotics at this time and those will be continued for 2 weeks after discharge. Home O2 eval done prior to discharge and patient will discharge home with oxygen therapy. (8) Anemia: Code(s): D64.9 - Anemia, unspecified Status: Acute Assessment and Plan: Hgb 12 on admission and noted that it dropped to as a low as 9.4. She had blood in her stool on one episode overnight and the Hospitalist ordered stool occult, which was positive. She was also receiving IV fluid hydration for her sepsis and dilutional effects could contribute some to the anemia as well. She was not having any bloody bowel movements after that one episode. Her hemoglobin has remained stable and is 11 prior to discharge. She was started on IV protonix and will be discharged with oral protonix with recommendations to follow-up with PCP and GI for possible endoscopic evaluation that can be done as an outpatient. (9) Hiatal hernia: Code(s): K44.9 - Diaphragmatic hernia without obstruction or gangrene Status: Acute Assessment and Plan: Findings of a large hiatal hernia with her stomach and part of her colon in the hernia. No acute issues. She can discuss treatment options in follow-up with Dr. Pham. (10) Right inguinal hernia: Code(s): K40.90 - Unilateral inguinal hernia, without obstruction or gangrene, not specified as recurrent
== END 2024-05-21 16:47 | disposition home health service (06) | DRG 871 ==
LOC: ANHIMU 05-18 11:31 → ANH3MEDSUR 05-19 13:54 → ANH2MED 05-25 06:51 → ANH3MEDSUR 05-25 06:51 → ANHIMU 05-25 06:51
PROVIDERS: Nurse Practitioner; Physician Assistant; Admitting Provider Surgery; PCP Internal Medicine; Visit Provider Nurse Practitioner Family
DX: A41.9 Sepsis, unspecified organism (principal); J69.0 Pneumonitis due to inhalation of food and vomit; J96.01 Acute respiratory failure with hypoxia; K80.00 Calculus of gallbladder with acute cholecystitis without obstruction; K92.1 Melena; D64.9 Anemia, unspecified; E78.5 Hyperlipidemia, unspecified; E53.8 Deficiency of other specified B group vitamins; E55.9 Vitamin D deficiency, unspecified; I10 Essential (primary) hypertension; I25.10 Atherosclerotic heart disease of native coronary artery without angina pectoris; I25.2 Old myocardial infarction; J43.9 Emphysema, unspecified; Z87.891 Personal history of nicotine dependence; Z95.5 Presence of coronary angioplasty implant and graft
CPT/HCPCS: 36415; 36600; 47490; 71045; 71275; 74174; 80048; 80053; 82274; 82375; 82805; 82948; 83036; 83050; 83605; 83735; 83880; 84145; 85025; 85027; 85380; 85610; 85730; 87040; 87070; 87075; 87102; 87205; 87206; 92610; 92611; 93005; 94618; 94640; 96361; 96365; 97110; 97161; 97166; 97530; 97535; A9270; C1729; G0378; G0379; J1650; J2270; J2543; J3475; J3480; J7030; J7040; J7120; Q9967

== ENCOUNTER 2024-05-28 08:40 | Outpatient (CLI) | payer MEDICARE, MEDICAID, SELFPAY ==
--- NOTE | ~2024-05-28 | XR_ITS ---
EXAMINATION: XR catheter cholangiogram DATE: 05/28/2024 09:49 INDICATION: Acute cholecystitis. TECHNIQUE: I injected the cholecystostomy tube with Omnipaque 240 contrast and performed fluoroscopy of the abdomen. The fluoroscopy exposure time was 0.8 minutes. The number of images was 7. COMPARISON: CT abdomen and pelvis 05/17/2024 FINDINGS: The cholecystostomy tube was occluded, but I relieved the obstruction with flushing. The ch olecystostomy tube is in expected position in the gallbladder. There are gallstones in the gallbladde r. There is contrast opacification of the common duct and passage of contrast to the duodenum. The co mmon duct is mildly dilated. There is a filter in the inferior vena cava. There are changes of plastic press molder ior fusion procedure of thoracolumbar spine. IMPRESSION: 1. Cholelithiasis with cholecystostomy tube in expected position. 2. Patent cystic duct and common duct. Reviewed, dictated and finalized at location A.
== END 2024-05-28 08:41 | disposition home or self-care (01) ==
PROVIDERS: PCP Internal Medicine; Visit Provider Surgery
DX: K80.00 Calculus of gallbladder with acute cholecystitis without obstruction (principal); Z93.59 Other cystostomy status
CPT/HCPCS: 47531

== ENCOUNTER 2024-06-19 13:21 | Outpatient (CLI) | payer MEDICARE, MEDICAID, SELFPAY ==
--- NOTE | ~2024-06-19 | XR_ITS ---
XR chest 2V Ordering provider: TOMER Camilo History: 68 years Female with . J69.0 - Pneumonitis due to inhalation of food and vomit . Comparison: May 20, 2024 FINDINGS: MEDIASTINUM: The cardiac silhouette is not enlarged. LUNGS: No effusion or pneumothorax. Opacification in the left lung bases suggestive of atelectasis. E mphysematous changes. OTHER: Elevation of the left hemidiaphragm. No free air under the diaphragm. Postoperative changes of the spine. IMPRESSION: Left basal atelectasis with no change from previous examination. Reviewed, dictated and finalized at location A.
== END 2024-06-19 13:22 | disposition home or self-care (01) ==
PROVIDERS: PCP Internal Medicine; Visit Provider Clinical Nurse Specialist
DX: J69.0 Pneumonitis due to inhalation of food and vomit (principal); J44.9 Chronic obstructive pulmonary disease, unspecified; R91.8 Other nonspecific abnormal finding of lung field
CPT/HCPCS: 71046

== ENCOUNTER 2025-01-25 12:09 | Outpatient (CLI) | payer MEDICARE, SELFPAY ==
[2025-01-25 13:05] LABS: Basophils Absolute Auto 0.1 K/mm3 (0.0-0.1); Basophils Percent Auto 0.8 % (0.2-1.2); Eosinophils Absolute Auto 0.1 K/mm3 (0-0.3); Eosinophils Percent Auto 1.6 % (0-4.4); Hematocrit 32.3 % (37.0-47.0); Hemoglobin 8.7 g/dL (12.0-15.0); Immature Granulocyte Absolute 0.01 K/mm3 (0.00-0.031); Immature Granulocyte Percent A 0.2 % (0-0.5); Lymphocytes Absolute Auto 1.54 K/mm3 (0.9-3.2); Lymphocytes Percent Auto 25.2 % (18.3-44.2); Mean Corpuscular HGB Conc 26.9 g/dl (32-36); Mean Corpuscular Hemoglobin 20.3 pg (26-34); Mean Corpuscular Volume 75.3 fl (80-100); Mean Platelet Volume 9.5 fl (7.4-10.4); Monocytes Absolute Auto 0.4 K/mm3 (0.1-0.6); Monocytes Percent Auto 6.7 % (2.6-8.5); Neutrophils Percent Auto 65.5 % (45.5-73.1); Platelet Count Result 383 k/mm3 (150-375); Red Blood Count 4.29 M/mm3 (4.2-5.4); Red Cell Distribution Width 18.6 % (11.5-14.5); White Blood Count 6.1 K/mm3 (4.5-10.0)
[2025-01-25 13:10] LABS: Alanine Aminotransferase 10 U/L (6-35); Albumin Level 3.8 g/dL (3.5-5.1); Alkaline Phosphatase 92 U/L (38-126); Anion Gap 3 mmol/L (4-12); Aspartate Amino Transferase 23 U/L (14-36); Bilirubin,Total 0.5 mg/dL (0.2-1.3); Blood Urea Nitrogen 21 mg/dL (7-17); Calcium 9.2 mg/dL (8.4-10.2); Carbon Dioxide 38 mmol/L (22-30); Chloride 100 mmol/L (98-107); Cholesterol 169 mg/dL (0-200); Estimated Glomerular Filt Rate > 60; Glucose 91 mg/dL (65-110); HDL Direct 63 mg/dL; Potassium 4.3 mmol/L (3.4-5.0); Sodium 141 mmol/L (137-145); Triglycerides 117 mg/dL (<150)
[2025-01-25 13:21] LABS: LDL Cholesterol Direct 79 mg/dL
[2025-01-25 13:30] LABS: Vitamin D 25 Hydroxy 24.7 ng/mL
--- OUTSIDE RECORDS SUMMARY | 2025-01-25 13:52 | XMS_ITS | Continuity of Care Document ---
Author Organization [facility] Address [address] [place] [address] Phone Care Team Providers Care Milk Hauler Name Role Phone [facility] Unavailable Unavail able Procedures Procedure Date TF Plastic Sphcyl [place] To +/-4d .12-2d Progressive Lens, Plastic Vision Svcs Frames Purchases Frames Deluxe Post-op Follow-up Visit Post-op Follow-up Visit Complex Extracapsular Cat Rem, Comanaged PreOp Assessment Performed Eye Exam & Treatment Echo Exam Of Eye-Professional 0 Advance Directives Directive Yes / No Effective Date File Name No Information Encounters Encounter Description Practice Location Reason(s) For Visit Diagnoses Date Provider Providers Copied on Encounter [facility], [address], [place], [place], [id number], [place] tel:[phone] SEC [facility] No Information 0 [facility] . [address], [address], [place], [place], [id number], [place]. tel:[phone] Referring Provider: Garry Arredondo, [address], [place], [address]. tel:[phone] [facility], [address], [place], [place], [id number], [place] tel:[phone] C[facility] No Information Mar-3 1-201 0 Doisy Edward. [address] , [address], [place], [place], [facility], . tel:[phone] [facility], [address], [place], [place], [id number], tel:[phone] [facility] [place] No Information Mar-1 7-201 0 Doisy Edward. [address] , [address], [place], [place], [facility], [place]. tel:[phone] [facility], [address], [place], [place], [id number], tel:[phone] [facility] No Information Mar-1 6-201 0 Doisy Edward. [address] , [address], [place], [place], [facility], [place]. tel:[phone] Referring Provider: Vida Bazan OD, [address] [place] [address], [place], [address]. tel:[phone] [facility], [address], [place], [place], [id number], tel:[phone] [facility] [place] No Information Mar-0 8-201 0 Doisy Edward. [facility] , [address], [place], [place], [facility], [place]. tel:[phone] Referring Provider: Vida Bazan OD, [address] [place] [address], [place], [address]. tel:[phone] Family History Family Member Type Diagnosis Age At Onset No Information Payers Payer name Insurance type Covered democrat ID Authoriza tion(s) No Information Social History Type Description Quantity Date Captured Comments Sex Female Smoking Status No Information Chief Complaint And Reason For Visit No Information Reason For Referral Reason For Referral No Information History Of Present Illness Encounter Date Complaint History Of Prese nt Illness No Information Functional Status Date Functional Assessmen t No Information Instructions Date Instruction Additional Infor mation No Information Assessments Type Assessment Date No Information Patient Care Teams Name Effective Dates (start - stop) Status Members No Information
--- OUTSIDE RECORDS SUMMARY | 2025-01-25 13:52 | XMS_ITS | Referral Summary ---
Author Organization [facility] [employer] Address [address] [place] [address] Care Team Providers Care Information Technology Auditor Name Role Phone Unavailable Primary Care Provider Unavailabl e Source Comments [facility] [employer],non-owned Affiliates and Associated Physician Practices is amultiple site organization consisting of ambulatory clinics and hospital sitesin [place], [place], [place] and [place]. This disclosure is being madepursuant to the Care Everywhere program and may not contain all information available regarding this patient. Last updated [email or web address] Allergies No known active allergies Medications * Be aware that medications may not be up to date on this document. Alwaysverify current medications with the patient. Medication Sig Dispensed Refills Start Date End Date Status citalopram (CELEXA) 20 MG tablet Take 20 mg by mouth daily. Active aripiprazole (ABILIFY) 5 MG tablet Take 5 mg by mouth daily. Active famotidine (PEPCID) 40 MG tablet Take 40 mg by mouth daily. Active simvastatin (ZOCOR) 40 MG tablet Take 40 mg by mouth at bedtime. Active oxybutynin (DITROPAN) 5 MG tablet Take 5 mg by mouth daily. 07/10/2010 Active clopidogrel (PLAVIX) 75 MG tablet Take 75 mg by mouth daily. Active acetaminophen (TYLENOL) 325 MG tablet Take 1-2 Tabs by mouth every 4 hours as needed for Fever and Pain (discomfort). Maximum allowable Acetaminophen amount = 4 Grams / 24 hours. 07/11/2010 Active aspirin EC (ECOTRIN) 325 MG tablet Take 1 Tab by mouth daily. 07/11/2010 Active nitroglycerin (NITROSTAT) 0.4 MG tablet Dissolve 1 Tab under the tongue every 5 minutes as needed for Angina (If no pain relief after 2 doses, proceed to the ED.). 100 Tab 0 07/11/2010 Active Active Problems No known active problems Immunizations Name Administration Dates Next Due iNFLUENZA VACCINE, RECOM-BROOKE, QUADR. (FLUBLOCK QUADRIVALENT; 18Y+) (RIV4) 09/29/2018 Social History Tobacco Use Types Packs/Day Years Used Date Smoking Tobacco: Every Day Cigarettes 1 35 Alcohol Use Standard Drinks/Week Comments Not Asked 0 (1 standard drink = 0.6 oz pur e alcohol) Sex and Gender Information Value Date Recorded Sex Assigned at Not on file Gender Identity Not on file Sexual Orientation Not on file Last Filed Vital Signs Vital Sign Reading Time Taken Comments Blood Pressure 99/67 07/11/2010 11:50 AM CDT Pulse 83 07/11/2010 11:50 AM CDT Temperature 36.8 C (98.3 F) 07/11/2010 11:50 AM CDT Respiratory Rate 20 07/11/2010 11:50 AM CDT Oxygen Saturation 94% 07/11/2010 12:53 PM CDT Inhaled Oxygen Concentration - - Weight 79.4 kg (175 lb) 07/11/2010 11:00 AM CDT Height 157.5 cm (5' 2 ) 07/11/2010 11:00 AM CDT Body Mass Index 32.01 07/11/2010 11:00 AM CDT Plan of Treatment Not on file Advance Directives * Full Code (Latest Code Status on File) Date Activated Date Inactivated Comments 07/10/2010 2:56 PM 07/12/2010 2:28 AM
--- OUTSIDE RECORDS SUMMARY | 2025-01-25 13:52 | XMS_ITS | Patient Health Summary ---
Author Organization [facility] Address [address] [place] [address] Care Team Providers Care Barrel Liner Name Role Phone Unavailable Primary Care Provider Unavailabl e Note from [facility],non-owned Affiliates and Associated Physician Practices is amultiple site organization consisting of ambulatory clinics and hospital sitesin [place], [place] and [place]. This disclosure is being madepursuant to the Care Everywhere program and may not contain all information available regarding this patient. Last updated 18.[facility] Allergies No known active allergies Medications * Be aware that medications may not be up to date on this document. Alwaysverify current medications with the patient. * citalopram (CELEXA) 20 MG tablet Take 20 mg by mouth daily. * aripiprazole (ABILIFY) 5 MG tablet Take 5 mg by mouth daily. * famotidine (PEPCID) 40 MG tablet Take 40 mg by mouth daily. * simvastatin (ZOCOR) 40 MG tablet Take 40 mg by mouth at bedtime. * oxybutynin (DITROPAN) 5 MG tablet(Started 07/10/2010) Take 5 mg by mouth daily. * clopidogrel (PLAVIX) 75 MG tablet Take 75 mg by mouth daily. * acetaminophen (TYLENOL) 325 MG tablet(Started 07/11/2010) Take 1-2 Tabs by mouth every 4 hours as needed for Fever and Pain (discomfort). Maximum allowable Acetaminophen amount = 4 Grams / 24 hours. * aspirin EC (ECOTRIN) 325 MG tablet(Started 07/11/2010) Take 1 Tab by mouth daily. * nitroglycerin (NITROSTAT) 0.4 MG tablet(Started 07/11/2010) Dissolve 1 Tab under the tongue every 5 minutes as needed for Angina (If no pain relief after 2 doses, proceed to the ED.). Active Problems No known active problems Immunizations * iNFLUENZA VACCINE, RECOM-BROOKE, QUADR. (FLUBLOCK QUADRIVALENT; 18Y+) (RIV4)(Given 09/29/2018) Social History Tobacco Use Types Packs/Day Years [...] Mass Index 32.01 07/11/2010 11:00 AM CDT Procedures * CARDIAC EKG ORDER(Performed 07/12/2010) * CARDIAC RHYTHM STRIP ORDER(Performed 07/12/2010) * CARDIAC PROCEDURE ORDER(Performed 07/12/2010) * CARDIAC EKG ORDER(Performed 07/12/2010) * BASIC METABOLIC PANEL (CALCIUM TOTAL)(Performed 07/11/2010) * CBC W AUTO DIFFERENTIAL(Performed 07/11/2010) * CARDIAC CATH CONSULT(Performed 07/10/2010) * CBC W AUTO DIFFERENTIAL(Performed 07/10/2010) * BASIC METABOLIC PANEL (CALCIUM TOTAL)(Performed 07/10/2010) * PT-INR(Performed 07/10/2010) * CARDIAC CATH ORDER(Performed 07/10/2010) Results * CARDIAC EKG ORDER (07/12/2010 4:06 PM CDT) Only the most recent of2 resultswithin the time period is included. Narrative Procedure Note Document, Scanned - 07/12/2010 7:33 AM CDT Scanned Document CARDIAC SERVICES ORD ERABLES * CARDIAC RHYTHM STRIP ORDER (07/12/2010 2:19 PM CDT) Narrative Procedure Note Document, Scanned - 07/12/2010 9:59 AM CDT Scanned Document CARDIAC SERVICES ORD ERABLES * CARDIAC PROCEDURE ORDER (07/12/2010 2:19 PM CDT) Narrative Procedure Note Document, Scanned - 07/12/2010 9:59 AM CDT Scanned Document CARDIAC SERVICES ORD ERABLES * (ABNORMAL) CBC W AUTO DIFFERENTIAL (07/11/2010 12:40 AM CDT) Only the most recent of2 resultswithin the time period is included. WBC 13.8(H) 4.5 - 11.0 1000/mm3 [facility] RBC 4.32 4.2 - 5.4 10X6 [facility] Hemoglobin 12.1 12.0 - 16.0 gm/dl [facility] Hematocrit 37.6 36.0 - 48.0 % [facility] MCV 87.0 80.0 - 99.0 fl [facility] MCH 28.0 25.0 - 31.0 pg [facility] MCHC 32.2 32.0 - 36.0 gm/dl [facility] RDW 13.8 11.5 - 14.5 % [facility] Platelet Count 243 130.0 - 400.0 1000/mm3 [facility] Granulocytes % 76.0(H) 40.0 - 70.0 % [facility] Lymphocytes % 18.3(L) 22.0 - 40.0 % [facility] Monocytes % 4.8 2.0 - 10.0 % [facility] Eosinophils % 0.7 0.0 - 6.0 % [facility] Basophils % 0.2 0.0 - 3.0 % [facility] Granulocytes Absolute 10.47(H) 1.8 - 7.7 [facility] Lymphocytes Absolute 2.53 1.0 - 5.4 [facility] Monocytes Absolute 0.66 0.1 - 1.1 [facility] Eosinophils Absolute 0.10 0.0 - 0.7 [facility] Basophils Absolute 0.03 0.0 - 0.2 [facility] Comment Manual Diff Not Indicated [facility] BLOOD SPECIMEN / Unknown 07/11/2010 12:40 AM CDT 07/11/2010 1:08 AM CDT Xavi Ruggiero MD LAB - HEMATOLOGY ORD ERABLES Performing Organization Address City/[facility] Co de Phone Number [facility] [address] [place] [address] * (ABNORMAL) BASIC METABOLIC PANEL (CALCIUM TOTAL) (07/11/2010 12:40 AM CDT) Only the most recent of2 resultswithin the time period is included. BUN 9 7.0 - 17.0 mg/dl [facility] Sodium 141 137 - 145 mmol/L [facility] Potassium 4.0 3.6 - 5.0 mmol/L [facility] Chloride 106 98.0 - 107.0 mmol/L [facility] CO2 31(H) 22.0 - 30.0 mEq/L [facility] Anion Gap 4.4 [facility] Glucose 90 75 - 110 mg/dl [facility] Creatinine 0.6 0.52 - 1.05 mg/dl [facility] Calcium 8.6 8.4 - 10.2 mg/dl [facility] eGFR by MDRD 103.41 ml/min/1.7 3m2 [facility] BLOOD SPECIMEN / Unknown 07/11/2010 12:40 AM CDT 07/11/2010 1:08 AM CDT Xavi Ruggiero MD LAB - CHEMISTRY ORDJaylene ISSA Performing Organization Address City/[facility] Co de Phone Number [facility] [address] [place] [address] * CARDIAC CATH CONSULT (07/10/2010 2:55 PM CDT) Narrative [facility] - 07/10/2010 2:55 PM CDT XAVI RUGGIERO 07/10/2010 2:55:12 PM [id number] 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 Asa plavix Medical therapy and cig cessation Xavi Ruggiero MD ECHO ORDERABLES [facility] * PT-INR (07/10/2010 11:55 AM CDT) PT 10.4 9.4 - 11.2 seconds [facility] INR 1.0 SEE BELOW [facility] Comment: 0.9-1.1 Normal 2.0-3.0 Conventional 2.5-3.5 Intensive BLOOD SPECIMEN / Unknown 07/10/2010 11:55 AM CDT 07/10/2010 12:05 PM CDT Xavi Ruggiero MD LAB - COAGULATION OR DERABLES Performing Organization Address City/[facility]/ZIP Co de Phone Number [facility] [address] [place] [address] * CARDIAC CATH ORDER (07/10/2010) 07/10/2010 Narrative Procedure Note Xavi Ruggiero MD - 07/10/2010 2:[facility] CARDIAC CATHETERIZATION PATIENT: RENZO JACKSON MR#: [id number] ADMIT DATE: 07/10/2010 PROCEDURE DATE: 07/10/2010 : 1955 PHYSICIAN: Xavi Ruggiero MD ROOM: REFERRING PHYSICIAN: XAVI RUGGIERO MD PROCEDURE: Angioplasty and stenting of the right coronary artery. CLINICAL HISTORY: This is a 54-year-old female with a totally occludedRCA who underwent a stress test that showed there was balanced ischemia Ibelieve. We then did a cardiac catheterization that showed LAD and RCAstenosis. She had previously undergone a stent to her LAD. We brought kaitlynn for chronic total occlusion with opening of the RCA. I discussed withher the potential risks and benefits, including a 1 in 800 risk of a heartattack, stroke, or , plus a 1 in 500 risk of a perforation, andpossible 1 in 1000 risk of emergency bypass. She understood these risksand wished to proceed. PROCEDURE: The patient was prepped and draped in the usual sterilefashion. 1% Lidocaine was used to infiltrate the region of the leftfemoral artery. An #8 Fr sheath was inserted in the left femoral arteryand a #6 Fr sheath was inserted in the right femoral. An #8 Fr JR4 guidecatheter was used to engage the right. Initial guide shots were taken. Babak used a #6 Fr diagnostic JL4 to engage the left and do selectiveinjections. We did simultaneous injections. This was a complicatedprocedure which required a longer time. Via the JR4 guide, we passed a FineCross catheter along with an 0.014inch Fielder wire. After much difficulty, we were able to cross the lesionin the proximal RCA. We then passed the FineCross down and exchanged iker Grand Slam wire. Once the Grand Slam wire was down I then removed theFineCross and I passed a 2.0 x 30 [place] and balloon to 6-8 atmospheres.I removed this and then exchanged for a 2.5 x 30 [place]. We then tookpictures through both guides. I passed a 3.0 x 28 mm Xience. We inflatedit at 9 atmospheres. We deflated it and then brought it back and inflatedit to 16 atmospheres. This was to prevent dissection at the distal end ofthe stent. I then removed this and over it I placed a 3.5 x 28 mm Xience.In the TAJIK cranial, we were able to determine just how much stent at thelocation of the ostium and I deployed. We took final pictures. I was able to close the left common femoralartery with a #6 Fr Angio-Seal and the right with a Mynx closure device. IMPRESSION: This was a complicated procedure with chronic totalocclusion. We injected simultaneously into the left and right coronaryarteries. I was able to cross successfully the right coronary artery. Weplaced two drug-eluting stents. The patient was given Plavix and will stayovernight. MD BOOGIE ARIAS/KENZIE #: [id number] CC: JAZMÍN WYNN MD MEDICAL/SURGICAL CARDIAC CATHETERIZATION - DP Xavi Ruggiero MD CARDIAC BRUSHER HAND ORD KARIBLES
--- OUTSIDE RECORDS SUMMARY | 2025-01-25 13:52 | XMS_ITS | CONTINUITY OF CARE DOCUMENT ---
Author Name tashi kasiekip Address Unknown Organization [facility] Address [address] [place] [address] Phone [phone] Care Team Providers Care Assembler Piano Name Role Phone Bahman BENÍTEZ, Xavi Unavailable FCO BENÍTEZ, BUD P Unavailable FCO BENÍTEZ BUD P Unavailable PROBLEMS Condition Status Date Provider Notes EDEMA active Xavi Ruggiero MD CAD-6/10 STENT LAD PROMUS active ? Rolan Bernal RN TOBACCO ABUSE active Xavi Ruggiero MD HTN BORDERLINE-5/10 ECHO LAE EF 58 active ? Roya Bernal RN LEG PAIN-5/10 VINI DOP NEG active ? Rolan Bernal RN CAD-8/10 STENT X 2 RCA active ? Xavi Ruggiero MD ENCOUNTERS Date Type Provider Location Encounter Diag nosis - In-person encounter Office Visit Xavi Ruggiero MD [facility] CAD-8/10 STENT X 2 RCA - In-person encounter Office Visit Xavi Ruggiero MD [facility] - In-person encounter Office Visit Xavi Ruggiero MD [facility] - In-person encounter Office Visit Xavi Ruggiero MD [facility] EDEMACAD-6/10 STENT LAD PROMUSTOBACCO ABUSEHTN BORDERLINE-5/10 ECHO LAE EF 58LEG PAIN-5/10 VINI DOP NEG VITAL SIGNS Date Observation Value Provider blood pressure, diastolic 74 mm[Hg] Steven bullock Escalante blood pressure, systolic 111 mm[Hg] Yogesh Escalante pulse rate 92 /min Gosia Escalante oxygen saturation, oximetry 96 % Gosia Escalante respiratory rate E&M 16 /min Quinn Escalante blood pressure, diastolic 70 mm[Hg] Da ara Escalante blood pressure, systolic 111 mm[Hg] Yogesh colby Escalante pulse rate 89 /min Gosia Escalante oxygen saturation, oximetry 97 % Gosia Boris respiratory rate E&M 16 /min Quinn Escalante blood pressure, diastolic 69 mm[Hg] Steven bullock Escalante blood pressure, systolic 118 mm[Hg] Yogesh colby Escalante pulse rate 86 /min Gosia Escalante oxygen saturation, oximetry 96 % Gosia Escalante respiratory rate E&M 16 /min Quinn Escalante ALLERGIES No Known Drug Allergies RESULTS Date Observation Value Provider Reference Range Interpretation Location prothrombin time (patient) 11.0 s [facility] international normalized ratio (INR) 1.1 [facility] platelet count 290 10*3/uL [facility] red blood cell distribution width 14.2 % [facility] mean corpuscular hemoglobin concentration, RBC 32.7 g/dL [facility] mean corpuscular hemoglobin, RBC 28.0 pg [facility] mean corpuscular volume, RBC 85.7 fL [facility] hematocrit, blood 43.7 % [facility] hemoglobin, blood 14.3 g/dL [facility] erythrocyte (RBC) count 5.10 10*6/mm3 [facility] monocytes as percent of blood leukocytes 4.3 % [facility] 2010/05/2 6 lymphocytes as percent of blood leukocytes 27.8 % [facility] Gael 6 leukocyte count, blood 9.7 10*3[facility]3 [facility] estimated glomerular filtration rate >60 [facility] anion gap, serum 10.8 [facility] Gael 6 calcium, serum 8.7 mg/dL [facility] Gael 6 blood glucose, fasting 91 mg/dL [facility] Gael 6 creatinine, serum 0.61 mg/dL [facility] G[facility] 6 urea nitrogen, blood 8.1 mg/dL [facility] G[facility] 6 carbon dioxide, serum, total 32 mmol/L [facility] 6 chloride, serum 108 mmol/L [facility] Gael 6 potassium, serum 3.8 mmol/L [facility] 6 sodium, serum 147 mmol/L [facility] Gael 1 international normalized ratio (INR) 1.5 Ruby Samaniego 1 prothrombin time (patient) 15.0 s Ruby Samaniego HISTORY OF MEDICATION USE Medication Status Instructions Dates Provider Indications Com ments ASPIRIN 325 MG ORAL TABLET active one tab daily Rolan Bernal RN PLAVIX 75 MG ORAL TABLET active ONE TAB. DAILY Rolan Bernal RN OXYBUTYNIN CHLORIDE 5 MG ORAL TABLET active take one daily Gosia Escalante SIMVASTATIN 40 MG ORAL TABLET active ONE TAB. DAILY Gosia Escalante FAMOTIDINE 40 MG ORAL TABLET active take one daily Gosia Escalante ABILIFY 5 MG ORAL TABLET active take one daily Gosia Escalante CELEXA 20 MG ORAL TABLET active take one daily Gosia Escalante SOCIAL HISTORY Date Observation Value Provider smoking/tobacco cess ation, patient education and counseling yes Rolan Bernal RN social history reviewed E&M reviewed Rolan Bernal RN smoking/tobacco cess ation, patient education and counseling yes Xavi Ruggiero MD cigarette use 15 Xavi Roldan social history reviewed E&M reviewed Xavi Ruggiero MD smoking/tobacco cess ation, patient education and counseling yes Xavi Ruggiero MD social history reviewed E&M reviewed Xavi Ruggiero MD social history E&M Marital Statu s: Single L [place] alone E thnicity: Xavi Ruggiero MD smoking/tobacco cess ation, patient education and counseling yes Xavi Ruggiero MD cigarette use 30 Xavi Da Silva D social history reviewed E&M reviewed Xavi Ruggiero MD caffeine use, averag e drinks per day yes [employer] alcohol use, average drinks per day none [employer] number of years as a smoker [facility] MENTAL STATUS Date Observation Value Provider assessment of judgme nt and insight E&M Alert and oriented to time, place and person. Mood and affect are normal. Rolan Bernal RN assessment of judgme nt and insight E&M Alert and oriented to time, place and person. Mood and affect are normal. Xavi Ruggiero MD assessment of judgme nt and insight E&M Alert and oriented to time, place and person. Mood and affect are normal. Xavi Ruggiero MD assessment of judgme nt and insight E&M Alert and oriented to time, place and person. Mood and affect are normal. Xavi Ruggiero MD INSURANCE PROVIDERS Payer name Policy type / Coverage type [place] red green party ID [place] MED[place] Medicare [id number] [facility] (MEDICAID) Medicaid [id number] TREATMENT PLAN Date Name Performer post cath: O rders: T OBACCO USE CESSATION INTERMEDIATE 3-10 MINUTES (CPT-66477) Xavi Ruggiero MD post cath: H er updated medication list for this problem includes: Aspirin 325 Mg Tabs (Aspirin) ..... One tab daily Prior BP: 111/74 (06/23/2010) Labs Reviewed: C reat: 0.61 (04/26/2010) Xavi Ruggiero MD post cath: H er updated medication list for this problem includes: Plavix 75 Mg Tabs (Clopidogrel bisulfate) ..... One tab. daily Aspirin 325 Mg Tabs (Aspirin) ..... One tab daily & #13;BP today: / Prior BP: 111/74 (06/23/2010) N uclear Stress Findings: 1. Regadenoson mediated myocardial perfusion study 2 . Normal left ventricular systolic function with a calculated ejection fraction of 50%. 3 . No obvious significant scintigraphic evidence of myocardial ischemia or scar. (04/05/2010) C ardiac Cath: Significant 3-vessel disease although the left anterior descending and right are significant. I will discuss with her whether she wants to consider just continued medical therapy on its own or whether to go ahead and stent the left anterior descending and then consider stenting the right. [facility] (05/04/2010) C ardiac Cath Comments: Successful primary stent of the proximal left anterior descending with a 3.0 x 18 PROMUS. The patient?s right common femoral artery has less than 10% stenosis. [facility] (05/25/2010) C arotid Doppler/Duplex: Normal (04/07/2010) H gb: 14.3 (04/26/2010) HCT: 43.7 (04/26/2010) RBC: 5.10 (04/26/2010) WBC: 9.7 (04/26/2010) B UN: 8.1 (04/26/2010) Creat: 0.61 (04/26/2010) Glucose: 91 (04/26/2010) N a+: 147 (04/26/2010) K+: 3.8 (04/26/2010) Cl: 108 (04/26/2010) PT: 11.0 (04/26/2010) INR: 1.1 (04/26/2010) E chocardiogram: Normal left ventricular systolic function. Normal left ventricular size. Normal left ventricular wall thickness. There is E to A wave reversal consistent with impaired LV relaxation . Normal E/E` 8.0. Left ventricular ejection fraction is estimated at 58%. There is mild enlargement of the left atrium. Normal pericardium with no pericardial or pleural effusion. Normal aortic root. (04/07/2010) Xavi Ruggiero MD hosp f/u Xavi Ruggiero MD hosp f/u Xavi Ruggiero MD hosp f/u:The Patient was reencou raged to stop smoking. Xavi Ruggiero MD hosp f/u Xavi Ruggiero MD hosp f/u: H er updated medication list for this problem includes: Simvastatin 40 Mg Tabs (Simvastatin) ..... One tab. daily Orders: E KG (CPT-35221) will schedule for a stent at [facility] but will need to discuss with anesthesia re what kind of anesthesia is required. Xavi Ruggiero MD f/u Xavi Ruggiero MD f/u:secondary to pvd . will check an aif and a cath due to cad. O rders: C ardiac Cath - GC (*) A IF - GC (*) Xavi Ruggiero MD f/u Xavi Ruggiero MD f/u:The Patient was reencouraged to stop smoking. Xavi Ruggiero MD new patient:The Patient was reen couraged to stop smoking. Xavi Ruggiero MD new patient: H er updated medication list for this problem includes: Simvastatin 40 Mg Tabs (Simvastatin) ..... One tab. daily Orders: C omplete Echo (CPT-84693) S tress Test - Adenosine (16018) Xavi Ruggiero MD new patient: O rders: A rterial Duplex Lower Extremity Bilateral (CPT-98263) Xavi Ruggiero MD new patient:she will need an evaluation of the liver, kidney and the heart O rders: V enous Doppler Bilateral LE (08969) Xavi Ruggiero MD Date Name Arterial Duplex Lowe r Extremity Bilateral AIF - GC Cardiac Cath - GC PROTHROMBIN TIME WIT H INR PARTIAL THROMBOPLAST IN TIME, ACTIVATED B TYPE NATRIURETIC P EPTIDE (BNP) LIPID PANEL THYROID PANEL WITH T SH, 3RD GENERATION CBC (H/H, RBC, INDIC ES, WBC, PLT) COMPREHENSIVE METABO LIC PANEL W/EGFR Arterial Duplex Lowe r Extremity Bilateral Venous Doppler Bilat eral LE Stress Test - Adenos ine Complete Echo HISTORY OF PROCEDURES Procedure Date Procedure Name Provider Procedure Notes S tatus EKG Xavi Ruggiero MD completed EKG Xavi Ruggiero MD completed
--- OUTSIDE RECORDS SUMMARY | 2025-01-25 13:52 | XMS_ITS | Clinical Summary ---
Author Organization [facility] Address [address] [place] [address] Care Team Providers Care Senior Architectural Designer Name Role Phone Unavailable Primary Care Provider Unavailabl e Source Comments [facility],non-owned Affiliates and Associated Physician Practices is amultiple site organization consisting of ambulatory clinics and hospital sitesin [place], [place], [place] and [place]. This disclosure is being madepursuant to the Care Everywhere program and may not contain all informatio navailable regarding this patient. Last updated 18.[facility] [employer] Allergies No known active allergies Medications * [...] 07/11/2010 11:00 AM CDT Plan of Treatment Health Maintenance Due Date Last Done Comments BONE DENSITY TESTING 1955 COLOGUARD (AGES 45-75) - COL ON CA SCREENING 1955 COLON MONITORING 1955 COLONOSCOPY - COLON CA SCREENING 1953 CT COLONOGRAPHY - COLON CA SCREENING 1955 Colorectal Cancer Screening 1955 FIT - COLON CA SCREENING 1955 FLEX SIG - COLON CA SCREENING 1955 MAMMOGRAM 1955 MEDICARE AWV 12 MONTHS 1955 HEPATITIS C SCREENING 09/11/1971 DTAP/TDAP/TD VACCINES (1 - Tdap) 1972 PNEUMOCOCCAL VACCINE 50+ (1 of 2 - PCV) 1972 ZOSTER VACCINE (1 of 2) 2003 COVID-19 VACCINE ( - 2023-2 5 season) 2024 INFLUENZA VACCINE (#1) 2024 09/29/2018 DEPRESSION SCREENING 12/02/2024 Respiratory Syncytial Virus (RSV) Vaccine Pt: or over 60 yrs (1 - 1-dose 75+ series) 2028 HEPATITIS B VACCINE Aged Out No longe r eligible based on patient's age to complete this topic HIB VACCINE Aged Out No longer eligi ble based on patient's age to complete this topic HPV VACCINE Aged Out No longer eligi ble based on patient's age to complete this topic MENINGOCOCCAL (Group B) VACCINE Aged Out No longer eligible based on patient's age to complete this topic MENINGOCOCCAL VACCINE Aged Out No nisha francisco eligible based on patient's age to complete this topic Advance Directives * Full Code (Latest Code Status on File) Date Activated Date Inactivated Comments 07/10/2010 2:56 PM 07/12/2010 2:28 AM
--- OUTSIDE RECORDS SUMMARY | 2025-01-25 13:52 | XMS_ITS | Clinical Summary ---
Author Organization [facility] Address [address] [place] [address] Phone Care Team Providers Care Pick Up And Delivery Driver Name Role Phone Unavailable Primary Care Provider Unavailabl e Social History Tobacco Use Types Packs/Day Years Used Date Smoking Tobacco: Never Assessed Comments Unknown Sex and Gender Information Value Date Recorded Sex Assigned at Not on file Legal Sex Female 7:51 PM CDT Gender Identity Not on file Sexual Orientation Not on file Plan of Treatment Not on file
[2025-01-25 14:11] LABS: Hypochromasia 1+; Platelet Estimate Increased (Adequate); Schistocytes None Seen
[2025-01-25 14:12] LABS: Anisocytosis 2+
== END 2025-01-25 12:10 | disposition home or self-care (01) ==
PROVIDERS: PCP Internal Medicine; Visit Provider Clinical Nurse Specialist
DX: E53.8 Deficiency of other specified B group vitamins (principal); I10 Essential (primary) hypertension; I25.10 Atherosclerotic heart disease of native coronary artery without angina pectoris; R00.0 Tachycardia, unspecified; E78.2 Mixed hyperlipidemia; E55.9 Vitamin D deficiency, unspecified; D64.9 Anemia, unspecified; J44.9 Chronic obstructive pulmonary disease, unspecified
CPT/HCPCS: 36415; 80053; 80061; 82306; 82607; 84443; 85025

== ENCOUNTER 2025-01-26 15:33 | Emergency (ER) | payer MEDICARE, MEDICAID, SELFPAY ==
[2025-01-26 15:40] VITALS: BP 102/49; PULSE 98; RESP 20; TEMP 36.7; O2SAT 93
--- OUTSIDE RECORDS SUMMARY | 2025-01-26 18:06 | XMS_ITS | Clinical Summary ---
Author Organization [facility] Address [address] [place] [address] Phone Care Team Providers Care Beverage Sales Consultant Name Role Phone Unavailable Primary Care Provider [...]
--- OUTSIDE RECORDS SUMMARY | 2025-01-26 18:06 | XMS_ITS | Patient Health Summary ---
Author Organization [facility] Address [address] [place] [address] Care Team Providers Care Television Host Name Role Phone Unavailable Primary Care Provider Unavailabl e Note from [facility],non-owned Affiliates and Associated Physician Practices is amultiple site organization consisting of ambulatory clinics and hospital sitesin [place], [place], [place] and [place]. This disclosure is being madepursuant to the Care Everywhere program and may not contain all information available regarding this patient. Last updated 18.[facility] Allergies No known active allergies Medications * [...] - HEMATOLOGY ORD ERABLES Performing Organization Address City/[facility] Co de Phone Number [facility] [address] [place] [address] * (ABNORMAL) BASIC METABOLIC PANEL (CALCIUM TOTAL) (07/11/2010 12:40 AM CDT) Only the most recent of2 resultswithin the time period is included. BUN 9 7.0 - 17.0 mg/dl [facility] Sodium 141 137 - 145 mmol/L [facility] Potassium 4.0 3.6 - 5.0 mmol/L [facility] Chloride 106 98.0 - 107.0 mmol/L [facility] CO2 31(H) 22.0 - 30.0 mEq/L [facility] Anion Gap 4.4 [facility] Glucose 90 75 - 110 mg/dl [facility] Creatinine 0.6 0.52 - 1.05 mg/dl [facility] Calcium 8.6 8.4 - 10.2 mg/dl [facility] eGFR by MDRD 103.41 ml/min/1.7 3m2 [facility] BLOOD SPECIMEN / Unknown 07/11/2010 12:40 AM CDT 07/11/2010 1:08 AM CDT Xavi Ruggiero MD LAB - CHEMISTRY ORDJaylene ISSA Performing Organization Address City/[facility] Co de Phone Number [facility] [address] [place] [address] * CARDIAC CATH CONSULT (07/10/2010 2:55 PM CDT) Narrative [facility] - 07/10/2010 2:55 PM CDT XAVI RUGGIERO 07/10/2010 2:55:12 PM [id number] This is a 54 yr old with a director merit system of the rca and here to open it. [facility] Medical therapy and cig cessation Procedure Note Xavi Ruggiero MD - 07/10/2010 2:53 PM CDT [id number] This is a 54 yr old with a director merit system of the rca and here to open it. [facility] Medical therapy and cig cessation Xavi Ruggiero MD ECHO ORDERABLES [facility] * PT-INR (07/10/2010 11:55 AM CDT) PT 10.4 9.4 - 11.2 seconds [facility] INR 1.0 SEE BELOW [facility] Comment: 0.9-1.1 Normal 2.0-3.0 Conventional 2.5-3.5 Intensive BLOOD SPECIMEN / Unknown 07/10/2010 11:55 AM CDT 07/10/2010 12:05 PM CDT Xavi Ruggiero MD LAB - COAGULATION OR DERABLES Performing Organization Address City/[facility]/ZIP Co de Phone Number [facility] [address] [place] [address] * CARDIAC CATH ORDER (07/10/2010) 07/10/2010 Narrative Procedure Note Xavi Ruggiero MD - [facility] CARDIAC CATHETERIZATION PATIENT: RENZO JACKSON MR#: [id number] ADMIT DATE: 07/10/2010 PROCEDURE DATE: 07/10/2010 : [...] and I passed a 2.0 x 30 [place] and balloon to 6-8 atmospheres.I removed this and then exchanged for a 2.5 x 30 [place]. We then tookpictures through both guides. I passed a 3.0 x 28 mm Xience. We inflatedit at 9 atmospheres. We deflated it and then brought it back and inflatedit to 16 atmospheres. This was to prevent dissection at the distal end ofthe stent. I then removed this and over it I placed a 3.5 x 28 mm Xience.In the [place] cranial, we were able to determine just [...] and will stayovernight. MD BOOGIE ARIAS/KENZIE #: [id number] CC: JAZMÍN WYNN MD MEDICAL/SURGICAL CARDIAC CATHETERIZATION - DP Xavi Ruggiero MD CARDIAC SKIN CARE SPECIALIST ORD KARIBLES
--- OUTSIDE RECORDS SUMMARY | 2025-01-26 18:06 | XMS_ITS | Clinical Summary ---
Author Organization [facility] Address [address] [place] [address] Care Team Providers Care Network Systems Engineer Name Role Phone Unavailable Primary Care Provider Unavailabl e Source Comments [facility],non-owned Affiliates and Associated Physician Practices is amultiple site organization consisting of ambulatory clinics and hospital sitesin [place], [place], [place] and [place]. This disclosure is being madepursuant to the Care Everywhere program and may not contain all informatio navailable regarding this patient. Last updated 18.[facility] Allergies No known active allergies Medications * [...]
--- OUTSIDE RECORDS SUMMARY | 2025-01-26 18:06 | XMS_ITS | CONTINUITY OF CARE DOCUMENT ---
Author Name tashi kasiekip Address Unknown Organization [facility] Address [address] [place] [address] Phone [phone] Care Team Providers Care Retail Shift Leader Name Role Phone Bahman BENÍTEZ, Xavi Unavailable [phone] FCO BENÍTEZ, BUD P Unavailable FCO BENÍTEZ BUD P Unavailable [phone] PROBLEMS Condition Status Date Provider Notes EDEMA [...] In-person encounter Office Visit Xavi Ruggiero MD [place] [facility] CAD-8/10 STENT X 2 RCA - In-person encounter Office Visit Xavi Ruggiero MD [place] [facility] - In-person encounter Office Visit Xavi Ruggiero MD [place] [facility] - In-person encounter Office Visit Xavi Ruggiero MD [place] [facility] EDEMACAD-6/10 STENT LAD PROMUSTOBACCO ABUSEHTN BORDERLINE-5/10 [...] as percent of blood leukocytes 27.8 % [facility] Gael 6 leukocyte count, blood 9.7 10*3/mm3 [facility] Mayo 6 estimated glomerular filtration rate >60 [facility] Mayo 6 anion gap, serum 10.8 [facility] Gael 6 calcium, serum 8.7 mg/dL [facility] Gael 6 blood glucose, fasting 91 mg/dL [facility] Gael 6 creatinine, serum 0.61 mg/dL [facility] Gael 6 urea nitrogen, blood 8.1 mg/dL [facility] Gael 6 carbon dioxide, serum, total 32 mmol/L [facility] Mayo 6 chloride, serum 108 mmol/L [facility] Gael 6 potassium, serum 3.8 mmol/L [facility] Gael 6 sodium, serum 147 mmol/L [facility] Gael 1 international normalized ratio (INR) 1.5 [...] MG ORAL TABLET active ONE TAB. DAILY oGsia Escalante FAMOTIDINE 40 MG ORAL TABLET active [...] a smoker 10 years or m ore [facility] Smoker [facility] MENTAL STATUS Date Observation Value Provider assessment [...] Payer name Policy type / Coverage type [place] red democrat ID [place] Medicare [id number] [facility] (MEDICAID) Medicaid [id number] TREATMENT PLAN Date Name Performer post cath: O rders: T OBACCO USE CESSATION INTERMEDIATE 3-10 MINUTES (CPT-37940) Xavi Ruggiero MD post cath: H er [...] descending and then consider stenting the right. [facility] (05/04/2010) C ardiac Cath Comments: Successful primary stent of the proximal left anterior descending with a 3.0 x 18 PROMUS. The patient?s right common femoral artery has less than 10% stenosis. [facility] (05/25/2010) C arotid Doppler/Duplex: Normal (04/07/2010) H [...] ..... One tab. daily Orders: E KG (CPT-14366) [facility] will need to discuss with anesthesia [...] One tab. daily Orders: C omplete Echo (CPT-17039) S tress Test - Adenosine ([id number]) Xavi Ruggiero MD new patient: O rders: A rterial Duplex Lower Extremity Bilateral (CPT-71744) Xavi Ruggiero MD new patient:she will need an evaluation of the liver, kidney and the heart O rders: V enous Doppler Bilateral LE (07452) Xavi Ruggiero MD Date Name Arterial Duplex [...]
--- OUTSIDE RECORDS SUMMARY | 2025-01-26 18:06 | XMS_ITS | Referral Summary ---
Author Organization [facility] [employer] Address [address] [place] [address] Care Team Providers Care Software Designer Name Role Phone Unavailable Primary Care Provider Unavailabl e Source Comments [facility] [employer],non-owned Affiliates and Associated Physician Practices is amultiple site organization consisting of ambulatory clinics and hospital sitesin [place], [place], [place] and [place]. This disclosure is being madepursuant to the Care Everywhere program and may not contain all information available regarding this patient. Last updated 18.[employer] Allergies No known active allergies Medications * [...]
[2025-01-26 18:35] VITALS: BP 114/56; PULSE 89; RESP 16; O2SAT 98
--- OUTSIDE RECORDS SUMMARY | 2025-01-26 19:54 | XMS_ITS | Clinical Summary ---
Author Organization [facility] Address [address] [place] [address] Phone Care Team Providers Care Director Of Curriculum And Instruction Name Role Phone Unavailable Primary Care Provider [...]
--- OUTSIDE RECORDS SUMMARY | 2025-01-26 19:54 | XMS_ITS | Clinical Summary ---
Author Organization [facility] [employer] Address [address] [place] [address] Care Team Providers Care Black Pickler Name Role Phone Unavailable Primary Care Provider Unavailabl e Source Comments [facility],non-owned Affiliates and Associated Physician Practices is amultiple site organization consisting of ambulatory clinics and hospital sitesin [place], [place], [place] and [place]. This disclosure is being madepursuant to the Care Everywhere program and may not contain all informatio navailable regarding this patient. Last updated 18.[employer] Allergies No known active allergies Medications * [...]
--- OUTSIDE RECORDS SUMMARY | 2025-01-26 19:54 | XMS_ITS | Patient Health Summary ---
Author Organization [facility] Address [address] [place] [address] Care Team Providers Care Butane Compressor Operator Name Role Phone Unavailable Primary Care Provider Unavailabl e Note from [facility],non-owned Affiliates and Associated Physician Practices is amultiple site organization consisting of ambulatory clinics and hospital sitesin [place], [place], [place] and [place]. This disclosure is being madepursuant to the Care Everywhere program and may not contain all information available regarding this patient. Last updated 18.[facility] Allergies No known active allergies Medications * [...] - HEMATOLOGY ORD ERABLES Performing Organization Address City/[facility] Co de Phone Number [facility] [address] [place] [address] * (ABNORMAL) BASIC METABOLIC PANEL (CALCIUM TOTAL) (07/11/2010 12:40 AM CDT) Only the most recent of2 resultswithin the time period is included. BUN 9 7.0 - 17.0 mg/dl [facility] Sodium 141 137 - 145 mmol/L [facility] Potassium 4.0 3.6 - 5.0 mmol/L [facility] Chloride 106 98.0 - 107.0 mmol/L [facility] CO2 31(H) 22.0 - 30.0 mEq/L [facility] Anion Gap 4.4 [facility] Glucose 90 75 - 110 mg/dl [facility] Creatinine 0.6 0.52 - 1.05 mg/dl [facility] Calcium 8.6 8.4 - 10.2 mg/dl [facility] eGFR by MDRD 103.41 ml/min/1.7 3m2 [facility] BLOOD SPECIMEN / Unknown 07/11/2010 12:40 AM CDT 07/11/2010 1:08 AM CDT Xavi Ruggiero MD LAB - CHEMISTRY ORDJaylene ISSA Performing Organization Address City/[facility] Co de Phone Number [facility] [address] [place] [address] * CARDIAC CATH CONSULT (07/10/2010 2:55 PM CDT) Narrative [facility] - 07/10/2010 2:55 PM CDT XAVI RUGGIERO 07/10/2010 2:55:12 PM [id number] 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 [employer] [employer] Medical therapy and cig cessation Xavi Ruggiero MD ECHO ORDERABLES [facility] * PT-INR (07/10/2010 11:55 AM CDT) PT 10.4 9.4 - 11.2 seconds [facility] INR 1.0 SEE BELOW [facility] Comment: 0.9-1.1 Normal 2.0-3.0 Conventional 2.5-3.5 Intensive BLOOD SPECIMEN / Unknown 07/10/2010 11:55 AM CDT 07/10/2010 12:05 PM CDT aXvi Ruggiero MD LAB - COAGULATION OR DERABLES Performing Organization Address City/[facility]/ZIP Co de Phone Number [facility] [address] [place] [address] * CARDIAC CATH ORDER (07/10/2010) 07/10/2010 Narrative Procedure Note Xavi Ruggiero MD - 07/10/2010 2[facility] CARDIAC CATHETERIZATION PATIENT: RENZO JACKSON MR#: [id number] ADMIT DATE: 07/10/2010 PROCEDURE DATE: 07/10/2010 : [...] and I passed a 2.0 x 30 [place] and balloon to 6-8 atmospheres.I removed this and then exchanged for a 2.5 x 30 [place]. We then tookpictures through both guides. I passed a 3.0 x 28 mm Xience. We inflatedit at 9 atmospheres. We deflated it and then brought it back and inflatedit to 16 atmospheres. This was to prevent dissection at the distal end ofthe stent. I then removed this and over it I placed a 3.5 x 28 mm Xience.In the [place] cranial, we were able to determine just [...] and will stayovernight. MD BOOGIE ARIAS/KENZIE #: [id number] CC: JAZMÍN WYNN MD MEDICAL/SURGICAL CARDIAC CATHETERIZATION - DP Xavi Ruggiero MD CARDIAC EXECUTIVE KITCHEN MANAGER ORD KARIBLES
--- OUTSIDE RECORDS SUMMARY | 2025-01-26 19:54 | XMS_ITS | CONTINUITY OF CARE DOCUMENT ---
Author Name tashi kasiekip Address Unknown Organization [facility] Address [address] [place] [address] Phone [phone] Care Team Providers Care Copy Machine Operator Name Role Phone Bahman BENÍTEZ, Xavi Unavailable FCO BENÍTEZ, BUD P Unavailable [phone] FCO BENÍTEZ BUD P Unavailable PROBLEMS Condition [...] In-person encounter Office Visit Xavi Ruggiero MD [place] [facility] CAD-8/10 STENT X 2 RCA - In-person encounter Office Visit Xavi Ruggiero MD [place] [facility] - In-person encounter Office Visit Xavi Ruggiero MD [place] [facility] - In-person encounter Office Visit Xavi Ruggiero MD [place] [facility] EDEMACAD-6/10 STENT LAD PROMUSTOBACCO ABUSEHTN BORDERLINE-5/10 [...] as percent of blood leukocytes 27.8 % [facility] Gael 6 leukocyte count, blood 9.7 10*3/mm3 [facility] Mayo 6 estimated glomerular filtration rate >60 [facility] Mayo 6 anion gap, serum 10.8 [facility] Gael 6 calcium, serum 8.7 mg/dL [facility] Gael 6 blood glucose, fasting 91 mg/dL [facility] Gael 6 creatinine, serum 0.61 mg/dL [facility] Gael 6 urea nitrogen, blood 8.1 mg/dL [facility] Gael 6 carbon dioxide, serum, total 32 mmol/L [facility] Mayo 6 chloride, serum 108 mmol/L [facility] Gael 6 potassium, serum 3.8 mmol/L [facility] Gael 6 sodium, serum 147 mmol/L [facility] Gael 1 international normalized ratio (INR) 1.5 [...] a smoker 10 years [facility] Sm[facility] MENTAL STATUS Date Observation Value Provider [...] Payer name Policy type / Coverage type [place] red constitution party ID [place] Medicare [id number] [facility] (MEDICAID) Medicaid [id number] TREATMENT PLAN Date Name Performer post cath: O rders: T OBACCO USE CESSATION INTERMEDIATE 3-10 MINUTES (CPT-40897) Xavi Ruggiero MD post cath: H er [...] descending and then consider stenting the right. [facility] (05/04/2010) C ardiac Cath Comments: Successful primary stent of the proximal left anterior descending with a 3.0 x 18 PROMUS. The patient?s right common femoral artery has less than 10% stenosis. [facility] (05/25/2010) C arotid Doppler/Duplex: Normal [...] ..... One tab. daily Orders: E KG (CPT-07579) will schedule for a stent at [facility] but will need to discuss with anesthesia re what kind of anesthesia is required. Xavi Ruggireo MD f/u Xavi Ruggiero MD f/u:secondary to [...] One tab. daily Orders: C omplete Echo (CPT-94024) S tress Test - Adenosine (31053) Xavi Ruggiero MD new patient: O rders: A rterial Duplex Lower Extremity Bilateral (CPT-29245) Xavi Ruggiero MD new patient:she will need an evaluation of the liver, kidney and the heart O rders: V enous Doppler Bilateral LE (20130) Xavi Ruggiero MD Date Name Arterial Duplex [...]
--- OUTSIDE RECORDS SUMMARY | 2025-01-26 19:54 | XMS_ITS | Referral Summary ---
Author Organization [facility] [employer] Address [address] [place] [address] Care Team Providers Care Border Machine Operator Name Role Phone Unavailable Primary Care Provider Unavailabl e Source Comments [facility] [employer],non-owned Affiliates and Associated Physician Practices is amultiple site organization consisting of ambulatory clinics and hospital sitesin [place], [place], [place] and [place]. This disclosure is being madepursuant to the Care Everywhere program and may not contain all information available regarding this patient. Last updated 18.[employer] Allergies No known active allergies Medications * [...]
--- NOTE | 2025-01-26 20:14 | PC.NURSE ---
pt called multiple times, no answer
== END 2025-01-26 20:16 | disposition left against medical advice (07) ==
PROVIDERS: PCP Internal Medicine
DX: M54.50 Low back pain, unspecified (principal)
CPT/HCPCS: 99199

== ENCOUNTER 2025-02-01 16:03 | Emergency (ER) | payer MEDICARE, MEDICAID, SELFPAY ==
[2025-02-01 16:17] VITALS: BP 116/56; PULSE 95; RESP 18; TEMP 36.6; O2SAT 88
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
[2025-02-01 18:00] LABS: Basophils Percent Auto 0.5 % (0.2-1.2); Eosinophils Absolute Auto 0.2 K/mm3 (0-0.3); Eosinophils Percent Auto 2.1 % (0-4.4); Hematocrit 33.9 % (37.0-47.0); Hemoglobin 9.3 g/dL (12.0-15.0); Immature Granulocyte Absolute 0.01 K/mm3 (0.00-0.031); Immature Granulocyte Percent A 0.1 % (0-0.5); Lymphocytes Absolute Auto 2.15 K/mm3 (0.9-3.2); Lymphocytes Percent Auto 26.9 % (18.3-44.2); Mean Corpuscular HGB Conc 27.4 g/dl (32-36); Mean Corpuscular Volume 72.9 fl (80-100); Mean Platelet Volume 9.5 fl (7.4-10.4); Monocytes Absolute Auto 0.5 K/mm3 (0.1-0.6); Monocytes Percent Auto 5.6 % (2.6-8.5); Neutrophils Absolute Auto 5.2 K/mm3 (1.3-6.7); Neutrophils Percent Auto 64.8 % (45.5-73.1); Platelet Count Result 302 k/mm3 (150-375); Red Blood Count 4.65 M/mm3 (4.2-5.4); Red Cell Distribution Width 19.2 % (11.5-14.5)
[2025-02-01 18:10] LABS: INR 1.1; Prothrombin Time 14.2 Seconds (11.1-14.7)
[2025-02-01 18:11] LABS: Partial Thromboplastin Time 27.9 Seconds (22.3-36.8)
[2025-02-01 18:14] LABS: Alanine Aminotransferase 10 U/L (6-35); Albumin Level 3.9 g/dL (3.5-5.1); Alkaline Phosphatase 92 U/L (38-126); Anion Gap 7 mmol/L (4-12); Aspartate Amino Transferase 23 U/L (14-36); Bilirubin,Total 0.5 mg/dL (0.2-1.3); Blood Urea Nitrogen 24 mg/dL (7-17); Calcium 9.3 mg/dL (8.4-10.2); Carbon Dioxide 34 mmol/L (22-30); Chloride 100 mmol/L (98-107); Estimated CRCL calculation 73 ml/min; Estimated Glomerular Filt Rate > 60; Glucose 98 mg/dL (65-110); Potassium 3.9 mmol/L (3.4-5.0); Sodium 141 mmol/L (137-145)
[2025-02-01 18:25] LABS: NT Pro B Type Natriuretic Pept 90 pg/mL (19.9-100); Troponin I < 0.012 ng/mL (0.000-0.034)
[2025-02-01 18:40] LABS: Platelet Estimate Adequate (Adequate)
[2025-02-01 18:41] LABS: Schistocytes None Seen
[2025-02-01 18:42] LABS: Anisocytosis 2+; Hypochromasia 1+; Microcytosis 1+ (NORMAL)
[2025-02-01 19:10] VITALS: BP 109/62; PULSE 91; RESP 20; O2SAT 100
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
[2025-02-01] MEDS: SODIUM CHLORIDE 0.9% IV 1,000 ML 999 ML IV CONT (19:25)
[2025-02-01 20:17] LABS: Influenza A QL RT-PCR Negative (Negative); Influenza B QL RT-PCR Negative (Negative); RSV RNA, RT-PCR Negative (Negative); SARS-CoV-2 RNA PCR Negative (Negative)
[2025-02-01 21:16] LABS: Add Urine Microscopic? YES; Appearance Urine Cloudy (Clear); Bacteria Urine 4+ /hpf; Bilirubin Urine Negative (Negative); Blood Urine Negative (Negative); Color Urine Yellow (Yellow); Glucose Urine UA Negative (Negative); Ketones Urine Negative (Negative); Leukocyte Esterase Ur Trace LEU/UL (Negative); Need Manual Microscopic Reviewed; Nitrate Urine Positive (Negative); Protein Urine Trace mg/dL (Negative); Specific Grav Ur 1.022 (1.001-1.035); Squamous Epithelial Cell Urine Occasional /hpf (Few); WBC Urine 0-5 /hpf (0-3); pH Urine 6.5 (5.0-9.0)
[2025-02-01] MEDS: NITROFURANTOIN MONOHYD MACROCR 100 MG CAP PO (21:48)
== END 2025-02-01 22:13 | disposition home or self-care (01) ==
PROVIDERS: Registered Nurse; Emergency Provider Emergency Medicine; PCP Internal Medicine
DX: N39.0 Urinary tract infection, site not specified (principal); R53.1 Weakness; Z20.822 Contact with and (suspected) exposure to COVID-19; I25.10 Atherosclerotic heart disease of native coronary artery without angina pectoris; I10 Essential (primary) hypertension; J44.9 Chronic obstructive pulmonary disease, unspecified; Z99.81 Dependence on supplemental oxygen; E53.8 Deficiency of other specified B group vitamins; E55.9 Vitamin D deficiency, unspecified; E78.5 Hyperlipidemia, unspecified; F32.A Depression, unspecified; Z95.5 Presence of coronary angioplasty implant and graft; Z87.891 Personal history of nicotine dependence; Z98.49 Cataract extraction status, unspecified eye; Z79.82 Long term (current) use of aspirin; Z79.899 Other long term (current) drug therapy
CPT/HCPCS: 36415; 71046; 80053; 81001; 83880; 84484; 85025; 85610; 85730; 87086; 87186; 87637; 93005; 96360; 99284; A9270; J7030

== ENCOUNTER 2025-02-17 13:57 | Outpatient (CLI) | payer MEDICARE, MEDICAID, SELFPAY ==
--- NOTE | ~2025-02-17 | CT_ITS ---
Noncontrast CT scan of the lumbar spine CLINICAL HISTORY: Other signs and symptoms of possible skeletal system TECHNIQUE: Axial noncontrast imaging of the lumbar spine was performed. Sagittal and coronal reformat hollie images were constructed. Dose reduction technique was used on this scan by utilizing automated ex posure control and iterative reconstruction technique. The dose-length product (DLP) was 219.60 mGy-c m. COMPARISON: 05/17/2024 FINDINGS: There is partially imaged thoracolumbar spinal fixation hardware extending from L3 superior ly through T10, essentially unchanged as compared to prior CT scan. Stable severe compression fractur e deformity of T12. Stable compression/Schmorl's node at the inferior endplate of L1. There is severe compression deformity of L5, which appears to be relatively acute, and new as compared to prior exam . No subluxation evident. There is retropulsion of the posterior portion of the L5 vertebral body. At L1-L2, there is no disc bulge or herniation. No spinal canal stenosis or definite neural foraminal narrowing. At L2-L3, there is no definite disc bulge or herniation. No spinal canal stenosis or definite neural foraminal narrowing. At L3-L4, there is minimal disc bulge with moderate facet arthropathy. Probable mild to moderate cent ral canal stenosis/thecal sac compression. Neural foramina are preserved. At L4-L5, there is disc bulge and retropulsion with facet arthropathy, resulting in moderate to sever e spinal canal stenosis/thecal sac compression. Probable mild right neural foraminal narrowing. Left neural foramen preserved. At L5-S1, there is no disc bulge or herniation. No spinal canal stenosis. There is probable mild left neural foraminal narrowing. Right neural foramen preserved. Paravertebral soft tissues are unremarkable. Impression: Severe, probable acute compression fracture of L5, with retropulsion. Chronic compression fractures of T12 and L1 with thoracolumbar spinal fixation hardware, as noted abo ve. Probable advanced degenerative spondylitic changes at L4-L5, as detailed above. Moderate degenerative change at L3-L4. Reviewed, dictated and finalized at location M. Impression: Severe, probable acute compression fracture of L5, with retropulsion. Chronic compression fractures of T12 and L1 with thoracolumbar spinal fixation hardware, as noted above. Probable advanced degenerative spondylitic changes at L4-L5, as detailed above. Moderate degenerative change at L3-L4.
--- OUTSIDE RECORDS SUMMARY | 2025-02-17 15:35 | XMS_ITS | Clinical Summary ---
Author Organization [facility] Address [address] [place] [address] Phone Care Team Providers Care Power Plant Assistant Name Role Phone Unavailable Primary Care Provider [...]
--- OUTSIDE RECORDS SUMMARY | 2025-02-17 15:35 | XMS_ITS | Continuity of Care Document ---
Author Organization [facility] Address [address] [place] [address] Phone Care Team Providers Care Data Migration Consultant Name Role Phone [facility] Unavailable Unavail able Procedures Procedure Date TF Plastic Sphcyl Coleman To +/-4d .12-2d Progressive Lens, Plastic Vision Svcs Frames Purchases Frames Deluxe Post-op Follow-up Visit Post-op Follow-up Visit Complex Extracapsular Cat Rem, Comanaged PreOp Assessment Performed Eye Exam & Treatment Echo Exam Of Eye-Professional 0 Advance Directives Directive Yes / No Effective Date File Name No Information Encounters Encounter Description Practice Location Reason(s) For Visit Diagnoses Date Provider Providers Copied on Encounter [facility], [address], [place], [place], [id number], [place] tel:[phone] [facility] No Information 0 [facility] . [address], [address], [place], [place], [address], [place]. tel:[phone] Referring Provider: Garry Arredondo, [address], [place], [address]. tel:[phone] [facility], [address], [place], [place], [id number], [place] tel:[phone] [facility] No Information Mar-3 1-201 0 Doisy Edward. [address] , [address], [place], [place], [facility], . tel:[phone] [facility], [address], [place], [place], [address], tel:[phone] [facility] No Information Mar-1 7-201 0 Doisy Edward. [address] , [address], [place], [place], [facility], [place]. tel:[phone] [facility], [address], [place], [place], [address], tel:[phone] [facility] No Information Mar-1 6-201 0 Doisy Edward. [address] , [address], [place], [place], [facility], [place]. tel:[phone] Referring Provider: Vida Bazan OD, [address] [place] [address], [place], [address]. tel:[phone] [facility], [address], [place], [place], [address], tel:[phone] [facility] No Information Mar-0 8-201 0 Doisy Edward. [facility] , [address], [place], [place], [facility], [place]. tel:[phone] Referring Provider: Vida Bazan OD, [address] [place] [address], [place], [address]. tel:[phone] Family History Family Member Type Diagnosis Age At Onset No Information Payers Payer name Insurance type Covered republican ID Authoriza tion(s) No Information Social History [...]
--- OUTSIDE RECORDS SUMMARY | 2025-02-17 15:35 | XMS_ITS | Clinical Summary ---
Author Organization [facility] Address [address] [place] [address] Care Team Providers Care Economic Development Director Name Role Phone Unavailable Primary Care Provider Unavailabl e Source Comments [facility],non-owned Affiliates and Associated Physician Practices is amultiple site organization consisting of ambulatory clinics and hospital sitesin [place], [place], [place] and [place]. This disclosure is being madepursuant to the Care Everywhere program and may not contain all information available regarding this patient. Last updated 18.alaTest Allergies No known active allergies Medications * [...] VACCINE (1 of 2) 2003 COVID-19 VACCINE (1 - 2023-2 5 season) 2024 INFLUENZA VACCINE [...] to complete this topic MENINGOCOCCAL (Group B) VACC INE SHARED DECISION-MAKING Aged Out No longer eligibl e based on patient's age to complete this topic MENINGOCOCCAL GROUPS A/C/Y/W VACCINE Aged Out No longer eligible b ased on patient's age to complete this topic Advance Directives * Full Code (Latest Code Status on File) Date Activated Date Inactivated Comments 07/10/2010 2:56 PM 07/12/2010 2:28 AM
--- OUTSIDE RECORDS SUMMARY | 2025-02-17 15:35 | XMS_ITS | CONTINUITY OF CARE DOCUMENT ---
Author Name tashi kasiekip Address Unknown Organization [facility] Address [address] [place] [address] Phone [phone] Care Team Providers Care Social Services Director Name Role Phone Bahman BENÍTEZ, Xavi Unavailable [phone] [facility] BENÍTEZ, BUD P Unavailable [phone] [facility] BENÍTEZ BUD P Unavailable PROBLEMS Condition [...] In-person encounter Office Visit Xavi Ruggiero MD [facility] CAD-8/10 STENT X 2 RCA - In-person encounter Office Visit Xavi Ruggiero MD [facility] - In-person encounter Office Visit Xavi Ruggiero MD [facility] - In-person encounter Office Visit Xavi Ruggiero MD [facility] EDEMACAD-6/10 STENT LAD PROMUSTOBACCO ABUSEHTN BORDERLINE-5/10 [...] as percent of blood leukocytes 27.8 % [facility] 6 leukocyte count, blood 9.7 10*3/mm3 [facility] estimated glomerular filtration rate >60 [facility] 6 anion gap, serum 10.8 [facility] 6 calcium, serum 8.7 mg/dL [facility] 6 blood glucose, fasting 91 mg/dL [facility] 6 creatinine, serum 0.61 mg/dL [facility] 6 urea nitrogen, blood 8.1 mg/dL [facility] 6 carbon dioxide, serum, total 32 mmol/L [facility] 6 chloride, serum 108 mmol/L [facility] 6 potassium, serum 3.8 mmol/L [facility] 6 sodium, serum 147 mmol/L [facility] 1 international normalized ratio (INR) [...] a smoker 10 years or m ore [facility] smoking status Smoker [facility] MENTAL STATUS Date Observation Value Provider assessment [...] Payer name Policy type / Coverage type [place] [employer] party ID [place] MED[place] Medicare [id number] [facility] (MEDICAID) Medicaid [id number] TREATMENT PLAN Date Name Performer post cath: O rders: T OBACCO USE CESSATION INTERMEDIATE 3-10 MINUTES (CPT-54065) Xavi Ruggiero MD post cath: H er [...] and then consider stenting the right. [facility] (05/04/2010) C ardiac Cath Comments: Successful primary stent of the proximal left anterior descending with a 3.0 x 18 PROMUS. The patient?s right common femoral artery has less than 10% stenosis. [facility] (05/25/2010) C arotid Doppler/Duplex: Normal (04/07/2010) H [...] ..... One tab. daily Orders: E KG (CPT-38112) will schedule for a stent at [facility] but will need to discuss with [...] One tab. daily Orders: C omplete Echo (CPT-06747) S tress Test - Adenosine (49047) Xavi Ruggiero MD new patient: O rders: A rterial Duplex Lower Extremity Bilateral (CPT-88044) Xavi Ruggiero MD new patient:she will need an evaluation of the liver, kidney and the heart O rders: V enous Doppler Bilateral LE (72281) Xavi Ruggiero MD Date Name Arterial Duplex [...]
== END 2025-02-17 13:58 | disposition home or self-care (01) ==
PROVIDERS: PCP Internal Medicine; Visit Provider Internal Medicine
DX: M48.54XA Collapsed vertebra, not elsewhere classified, thoracic region, initial encounter for fracture (principal); M48.56XA Collapsed vertebra, not elsewhere classified, lumbar region, initial encounter for fracture; Z98.1 Arthrodesis status; M51.369 Other intervertebral disc degeneration, lumbar region without mention of lumbar back pain or lower extremity pain; M48.061 Spinal stenosis, lumbar region without neurogenic claudication; R29.898 Other symptoms and signs involving the musculoskeletal system
CPT/HCPCS: 72131

== ENCOUNTER 2025-03-23 13:34 | Outpatient (CLI) | payer MEDICARE, MEDICAID, SELFPAY ==
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
--- OUTSIDE RECORDS SUMMARY | 2025-03-23 15:25 | XMS_ITS | CONTINUITY OF CARE DOCUMENT ---
Author Name tashi kasiekip Address Unknown Organization [facility] Address [address] [place] [address] Phone [phone] Care Team Providers Care Disability Benefits Specialist Name Role Phone Bahman BENÍTEZ, Xavi Unavailable [phone] FCO BENÍTEZ, BUD P Unavailable FCO BENÍTEZ BUD P Unavailable [phone] PROBLEMS Condition Status Date Provider Notes EDEMA [...] In-person encounter Office Visit Xavi Ruggiero MD Surveyor Office CAD-8/10 STENT X 2 RCA - In-person encounter Office Visit Xavi Ruggiero MD Surveyor Office - In-person encounter Office Visit Xavi Ruggiero MD Surveyor Office - In-person encounter Office Visit Xavi Ruggiero MD Surveyor Office EDEMACAD-6/10 STENT LAD PROMUSTOBACCO ABUSEHTN BORDERLINE-5/10 [...] [facility] erythrocyte (RBC) count 5.10 10*6/mm3 [facility] monocytes as percent of blood leukocytes 4.3 % [facility] 2010/05/2 6 lymphocytes as percent of blood leukocytes 27.8 % [facility] [place] Gael 6 leukocyte count, blood 9.7 10*3/mm3 [facility] 6 estimated glomerular filtration rate >60 [facility] 6 anion gap, serum 10.8 [facility] [place] Gael 6 calcium, serum 8.7 mg/dL [facility] [place] Gael 6 blood glucose, fasting 91 mg/dL [facility] [place] Gael 6 creatinine, serum 0.61 mg/dL [facility] [place] Gael 6 urea nitrogen, blood 8.1 mg/dL [facility] [place] Gael 6 carbon dioxide, serum, total 32 mmol/L [facility] 6 chloride, serum 108 mmol/L [facility] [place] Gael 6 potassium, serum 3.8 mmol/L [facility] [place] Gael 6 sodium, serum 147 mmol/L [facility] [place] Gael 1 international normalized ratio (INR) 1.5 [...] alcohol use, average drinks per day none LinkLog number of years as a smoker 10 years [facility] MENTAL STATUS Date Observation Value Provider [...] Payer name Policy type / Coverage type [place] red green party ID [place] MED[place] Medicare [id number] [facility] (MEDICAID)[place] Medicaid [id number] TREATMENT PLAN Date Name Performer post cath: O rders: T OBACCO USE CESSATION INTERMEDIATE 3-10 MINUTES (CPT-93454) Xavi Ruggiero MD post cath: H er [...] and then consider stenting the right. [facility] (05/04/2010) C ardiac Cath Comments: Successful primary stent of the proximal left anterior descending with a 3.0 x 18 PROMUS. The patient?s right common femoral artery has less than 10% stenosis. [facility] (05/25/2010) C arotid Doppler/Duplex: Normal (04/07/2010) H [...] ..... One tab. daily Orders: E KG (CPT-12270) will schedule for a stent at [facility] but will need to discuss with anesthesia [...] was reen couraged to stop smoking. Xavi Ruggeiro MD new patient: H er updated medication list for this problem includes: Simvastatin 40 Mg Tabs (Simvastatin) ..... One tab. daily Orders: C omplete Echo (CPT-51613) S tress Test - Adenosine (50423) Xavi Ruggiero MD new patient: O rders: A rterial Duplex Lower Extremity Bilateral (CPT-89623) Xavi Ruggiero MD new patient:she will need an evaluation of the liver, kidney and the heart O rders: V enous Doppler Bilateral LE (77025) Xavi Ruggiero MD Date Name Arterial Duplex [...]
--- OUTSIDE RECORDS SUMMARY | 2025-03-23 15:25 | XMS_ITS | Clinical Summary ---
Author Organization [facility] [employer] Address [address] [place] [address] Care Team Providers Care Educational Manager Name Role Phone Unavailable Primary Care Provider Unavailabl e Source Comments [facility] [employer],non-owned Affiliates and Associated Physician Practices is amultiple site organization consisting of ambulatory clinics and hospital sitesin [place], [place], [place] and [place]. This disclosure is being madepursuant to the Care Everywhere program and may not contain all information available regarding this patient. Last updated 18.[employer] Allergies No known active allergies Medications * Be aware that medications may not be up to date on this document. Alwaysverify current medications with the patient. citalopram (CELEXA) 20 MG tablet Take 20 mg by mouth daily. Active aripiprazole (ABILIFY) 5 MG tablet Take 5 mg by mouth daily. Active famotidine (PEPCID) 40 MG tablet Take 40 mg by mouth daily. Active simvastatin (ZOCOR) 40 MG tablet Take 40 mg by mouth at bedtime. Active oxybutynin (DITROPAN) 5 MG tablet Take 5 mg by mouth daily. 0 Active clopidogrel (PLAVIX) 75 MG tablet Take 75 mg by mouth daily. Active acetaminophen (TYLENOL) 325 MG tablet Take 1-2 Tabs by mouth every 4 hours as needed for Fever and Pain (discomfort). Maximum allowable Acetaminophen amount = 4 Grams / 24 hours. 0 Active aspirin EC (ECOTRIN) 325 MG tablet Take 1 Tab by mouth daily. 0 Active nitroglycerin (NITROSTAT) 0.4 MG tablet Dissolve 1 Tab under the tongue every 5 minutes as needed for Angina (If no pain relief after 2 doses, proceed to the ED.). 100 Tab 0 0 Active Active Problems No known active problems Immunizations Immunization Administration Dates Next Due iNFLUENZA VACCINE, RECOM-BROOKE, QUADR. 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 Gender Identity Not on file Sexual Orientation [...] - COLON CA SCREENING 1955 MAMMOGRAM 1953 HEPATITIS C SCREENING 09/11/1971 DTAP/TDAP/TD VACCINES (1 - Tdap) 1972 PNEUMOCOCCAL VACCINE 50+ (1 of 2 - PCV) 1972 ZOSTER VACCINE (1 of 2) 2003 COVID-19 VACCINE ( - 2023-2 5 season) 2024 DEPRESSION SCREENING 12/02/2024 INFLUENZA VACCINE (Season Ended) 2025 09/29/20 18 Respiratory Syncytial Virus (RSV) Vaccine Pt: or [...] on patient's age to complete this topic Insurance MEDICARE Advance Directives * Full Code (Latest Code Status on File) Date Activated Date Inactivated Comments 07/10/2010 2:56 PM 07/12/2010 2:28 AM
--- OUTSIDE RECORDS SUMMARY | 2025-03-23 15:25 | XMS_ITS | Clinical Summary ---
Author Organization [facility] Address [address] [place] [address] Phone Care Team Providers Care Rn Long Term Care Name Role Phone Unavailable Primary Care Provider [...]
--- OUTSIDE RECORDS SUMMARY | 2025-03-23 15:25 | XMS_ITS | Continuity of Care Document ---
Author Organization [facility] Address [address] [place] [address] Phone Care Team Providers Care Cosmetician Apprentice Name Role Phone [facility] Unavailable Unavail able Procedures Procedure Date TF Plastic Sphcyl Anton To +/-4d .12-2d Progressive Lens, Plastic Vision Svcs Frames Purchases Frames Deluxe Post-op Follow-up Visit Post-op Follow-up Visit Complex Extracapsular Cat Rem, Comanaged PreOp Assessment Performed Eye Exam & Treatment Echo Exam Of Eye-Professional 0 Advance Directives Directive Yes / No Effective Date File Name No Information Encounters Encounter Description Practice Location Reason(s) For Visit Diagnoses Date Provider Providers Copied on Encounter [facility], [address], [place], [place], [address], [place] tel:[phone] [facility] No Information 0 [facility] . [address], [address], [place], [place], [address], [place]. tel:[phone] Referring Provider: Garry Arredondo, [address], [place], [address]. tel:[phone] [facility], [address], [place], [place], [address], [place] tel:[phone] [facility] No Information Mar-3 1-201 0 Doisy Edward. [address] , [address], [place], [place], [facility], . tel:[phone] [facility], [address], [place], [place], [address], tel:[phone] [facility] No Information Mar-1 7-201 0 Doisy Edward. [address] , [address], [place], [place], [facility], [place]. tel:[phone] [facility], [address], [place], [place], [address], tel:[phone] [facility] No Information Mar-1 6-201 0 Doisy Edward. [address] , [address], [place], [place], [facility], [place]. tel:[phone] Referring Provider: Vida Bazan OD, [address] [place] [address], [place], [address]. tel:[phone] [facility], [address], [place], [place], [address], tel:[phone] [facility] No Information Mar-0 8-201 0 Doisy Edward. [facility] [address] , [address], [place], [place], [facility], [place]. tel:[phone] Referring Provider: Vida Bazan OD, [address] [place] [address], [place], [address]. tel:[phone] Family History Family Member Type Diagnosis Age At Onset No Information Payers Payer name Insurance type Covered libertarian ID Authoriza tion(s) No Information Social History [...]
== END 2025-03-23 13:35 | disposition home or self-care (01) ==
LOC: ANHNEURO 13:36
PROVIDERS: PCP Internal Medicine; Visit Provider Internal Medicine
DX: R29.898 Other symptoms and signs involving the musculoskeletal system (principal); M48.061 Spinal stenosis, lumbar region without neurogenic claudication
CPT/HCPCS: 95886; 95910

== ENCOUNTER 2025-04-29 13:56 | Outpatient (CLI) | payer MEDICARE, MEDICAID, SELFPAY ==
--- NOTE | ~2025-04-29 | MR_ITS ---
MRI of the lumbar spine Clinical History: Spinal stenosis Technique: Axial T2-weighted images, and sagittal T1-weighted, T2-weighted, and T2 fat-sat images wer e acquired. Findings: There is acute severe compression fracture of L5, with significant loss of height and diffu se marrow edema. There is chronic compression fracture. If T12, with surrounding posterior fixation h ardware extending from L3 superiorly through at least T11. At L1-L2, there is no disc bulge or herniation. No spinal canal stenosis or neural foraminal narrowin g. At L2-L3, there is no disc bulge or herniation. No spinal canal stenosis or neural foraminal narrowin g. At L3-L4, there is mild to moderate degenerative disc change. There is mild disc bulge with mild face t arthropathy. No central canal stenosis or neural foraminal narrowing. At L4-L5, there is diffuse disc bulge with mild to moderate facet arthropathy. No kevin central canal stenosis. Is minimal right neural foraminal narrowing. Left neural foramen preserved. At L5-S1, there is no significant disc bulge or herniation. There is mild to moderate facet arthropat hy. No central canal stenosis or definite neural foraminal narrowing. Paravertebral soft tissues are unremarkable aside from sacral Tarlov cysts. Impression: Acute severe L5 compression fracture. Chronic T12 compression fracture with surrounding posterior fusion hardware of the thoracolumbar spin e. Mild degenerative change, as above. Reviewed, dictated and finalized at [facility]. Impression: Acute severe L5 compression fracture. Chronic T12 compression fracture with surrounding posterior fusion hardware of the thoracolumbar spine. Mild degenerative change, as above.
--- OUTSIDE RECORDS SUMMARY | 2025-04-29 14:03 | XMS_ITS | Clinical Summary ---
Author Organization [facility] Address [address] [place] [address] Phone Care Team Providers Care Dredge Master Name Role Phone Unavailable Primary Care Provider [...]
--- OUTSIDE RECORDS SUMMARY | 2025-04-29 14:03 | XMS_ITS | Clinical Summary ---
Author Organization [facility] [employer] Address [address] [place] [address] Care Team Providers Care Cargo And Container Inspector Name Role Phone Unavailable Primary Care Provider Unavailabl e Source Comments [facility] [employer],non-owned Affiliates and Associated Physician Practices is amultiple site organization consisting of ambulatory clinics and hospital sitesin [place], [place], [place] and [place]. This disclosure is being madepursuant to the Care Everywhere program and may not contain all information available regarding this patient. 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
--- OUTSIDE RECORDS SUMMARY | 2025-04-29 14:03 | XMS_ITS | Continuity of Care Document ---
Author Organization [facility] Address [address] [place] [address] Phone Care Team Providers Care Fiscal Accountant Name Role Phone [facility] Unavailable Unavail able Procedures Procedure Date TF Plastic Sphcyl [place] To +/-4d .12-2d Progressive Lens, Plastic Vision Svcs Frames Purchases Frames Deluxe Post-op Follow-up Visit Post-op Follow-up Visit Complex Extracapsular Cat Rem, Comanaged PreOp Assessment Performed Eye Exam & Treatment Echo Exam Of Eye-Professional 0 Advance Directives Directive Yes / No Effective Date File Name No Information Encounters Encounter Description Practice Location Reason(s) For Visit Diagnoses Date Provider Providers Copied on Encounter [facility], [address], [place], [place], [address], [place] tel:[phone] [facility] No Information 0 [facility] . [address], [address], [place], [place], [address], [place]. tel:[phone] Referring Provider: Garry Arredondo, [address], [place], [address]. tel:[phone] [facility], [address], [place], [place], [address], [place] tel:[phone] [facility] No Information Mar-3 1-201 0 Doisy Edward. [address] , [address], [place], [place], [facility], . tel:[phone] [facility], [address], [place], [place], [address], tel:[phone] [facility] No Information Mar-1 7-201 0 Doisy Edward. [address] , [address], [place], [place], [facility], [place]. tel:[phone] [facility], [address], [place], [place], [address], tel:[phone] [facility] No Information Mar-1 6-201 0 Doisy Edward. [address] , [address], [place], [place], [facility], [place]. tel:[phone] Referring Provider: Vida Bazan OD, [address] [place] [address], [place], [address]. tel:[phone] [facility], [address], [place], [place], [address], tel:[phone] [facility] No Information Mar-0 8-201 0 Doisy Edward. [facility] by [facility] [address] , [address], [place], [place], [facility], [place]. tel:[phone] Referring Provider: Vida Bazan OD, [address] [place] [address], [place], [address]. tel:[phone] Family History Family Member Type Diagnosis Age At Onset No Information Payers Payer name Insurance type Covered alliance party ID Authoriza tion(s) No Information Social History [...]
== END 2025-04-29 13:57 | disposition home or self-care (01) ==
PROVIDERS: PCP Internal Medicine; Visit Provider Nurse Practitioner Adult Health
DX: M48.061 Spinal stenosis, lumbar region without neurogenic claudication (principal); S22.080A Wedge compression fracture of T11-T12 vertebra, initial encounter for closed fracture; S32.050A Wedge compression fracture of fifth lumbar vertebra, initial encounter for closed fracture; X58.XXXA Exposure to other specified factors, initial encounter
CPT/HCPCS: 72148

== ENCOUNTER 2025-06-22 13:53 | Outpatient (CLI) | payer MEDICARE, MEDICAID, SELFPAY ==
--- NOTE | ~2025-06-22 | US_ITS ---
US arterial ankle brachial ind INDICATION: Bilateral leg swelling and weakness TECHNIQUE: Segmental pressures and plethysmographic and Doppler waveforms of the brachial and lower e xtremity arteries were obtained. COMPARISON: None. FINDINGS: Right and left brachial artery pressures of 94 mm Hg and 110 mm Hg, respectively, are concordant (nor mal difference <= 30 mmHg). The right ankle-brachial index (SADIE) is 0.65 (normal >= 0.9-1.0). The right great toe-brachial index (TBI) is 0.56 (normal >= 0.60). The left SADIE is 0.84. The left TBI is 0.57. IMPRESSION: 1. Diminished bilateral ankle and toe brachial indices consistent with mild-moderate peripheral arter ial disease. Reviewed, dictated and finalized at location A. IMPRESSION: 1. Diminished bilateral ankle and toe brachial indices consistent with mild-mod erate peripheral arterial disease.
--- OUTSIDE RECORDS SUMMARY | 2025-06-22 14:03 | XMS_ITS | Clinical Summary ---
Author Organization [facility] Address [address] [place] [address] Phone Care Team Providers Care Hebrew Teacher Name Role Phone Unavailable Primary Care Provider [...]
--- OUTSIDE RECORDS SUMMARY | 2025-06-22 14:03 | XMS_ITS | Clinical Summary ---
Author Organization [facility] [email or web address] Address [address] [place] [address] Care Team Providers Care Pipe Washer Name Role Phone Unavailable Primary Care Provider Unavailabl e Source Comments [facility] [email or web address],non-owned Affiliates and Associated Physician Practices is amultiple site organization consisting of ambulatory clinics and hospital sitesin [place], [place], [place] and [place]. This disclosure is being madepursuant to the Care Everywhere program and may not contain all information available regarding this patient. 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
--- OUTSIDE RECORDS SUMMARY | 2025-06-22 14:03 | XMS_ITS | Continuity of Care Document ---
Author Organization [facility] Address [address] [place] [address] Phone Care Team Providers Care Doorshaker Name Role Phone [facility] Unavailable Unavail able Procedures Procedure Date TF Plastic Sphcyl [place] To +/-4d .12-2d Progressive Lens, Plastic Vision Svcs Frames Purchases Frames Deluxe Post-op Follow-up Visit Post-op Follow-up Visit Complex Extracapsular Cat Rem, Comanaged PreOp Assessment Performed Eye Exam & Treatment Echo Exam Of Eye-Professional 0 Advance Directives Directive Yes / No Effective Date File Name No Information Encounters Encounter Description Practice Location Reason(s) For Visit Diagnoses Date Provider Providers Copied on Encounter [facility], [address], [place], [place], [address], [place] tel:[phone] [address] [facility] No Information 0 [facility] . [address], [address], [place], [place], [address], [place]. tel:[phone] Referring Provider: Garry Arredondo, [address], [place], [address]. tel:[phone] [facility], [address], [place], [place], [address], [place] tel:[phone] [facility] No Information Mar-3 1-201 0 Doisy Edward. [address] [facility] , [address], [place], [place], [facility], . tel:[phone] [facility], [address], [place], [place], [address], tel:[phone] [facility] No Information Mar-1 7-201 0 Doisy Edward. [address] , [address], [place], [place], [facility], [place]. tel:[phone] [facility], [address], [place], [place], [address], tel:[phone] [facility] No Information Mar-1 6-201 0 Doisy Edward. [address] [facility] , [address], [place], [place], [facility], [place]. tel:[phone] Referring Provider: Vida Bazan OD, [address] [place] [address], [place], [address]. tel:[phone] [facility], [address], [place], [place], [address], tel:[phone] [facility] No Information Mar-0 8-201 0 Doisy Edward. [facility] , [address], [place], [place], [facility], [place]. tel:[phone] Referring Provider: Vida Bazan OD, [address] [place] [address], [place], [address]. tel:[phone] Family History Family Member Type Diagnosis Age [...]
== END 2025-06-22 13:54 | disposition home or self-care (01) ==
PROVIDERS: PCP Internal Medicine; Visit Provider Internal Medicine
DX: R09.89 Other specified symptoms and signs involving the circulatory and respiratory systems (principal); R29.898 Other symptoms and signs involving the musculoskeletal system; M48.061 Spinal stenosis, lumbar region without neurogenic claudication
CPT/HCPCS: 93922

== ENCOUNTER 2025-09-14 14:09 | Outpatient (CLI) | payer MEDICARE, MEDICAID, SELFPAY ==
--- OUTSIDE RECORDS SUMMARY | 2025-09-14 16:07 | XMS_ITS | Clinical Summary ---
Author Organization [facility] Address [address] [place] [address] Care Team Providers Care Scenic Designer Name Role Phone Unavailable Primary Care Provider Unavailabl e Source Comments [facility],non-owned Affiliates and Associated Physician Practices is amultiple site organization consisting of ambulatory clinics and hospital sitesin [place], [place], [place] and [place]. This disclosure is being madepursuant to the Care Everywhere program and may not contain all information available regarding this patient. 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
--- OUTSIDE RECORDS SUMMARY | 2025-09-14 16:07 | XMS_ITS | Clinical Summary ---
Author Organization [facility] Address [address] [place] [address] Phone Care Team Providers Care Timber Estimator Name Role Phone Unavailable Primary Care Provider [...]
[2025-09-14 17:29] LABS: Hematocrit 45.8 % (37.0-47.0); Hemoglobin 14.2 g/dL (12.0-15.0); Immature Granulocyte Percent A 0.1 % (0-0.5); Lymphocytes Absolute Auto 1.55 K/mm3 (0.9-3.2); Mean Corpuscular HGB Conc 31.0 g/dl (32-36); Mean Corpuscular Hemoglobin 27.3 pg (26-34); Mean Corpuscular Volume 88.1 fl (80-100); Nucleated Red Blood Cells Absolute Auto 0.000 K/mm3 (0.0-0.012); Nucleated Red Blood Cells Perc 0.0 % (0.0-0.2); Platelet Count Result 238 k/mm3 (150-375); Red Blood Count 5.20 M/mm3 (4.2-5.4); White Blood Count 7.6 K/mm3 (4.5-10.0)
[2025-09-14 18:07] LABS: Alanine Aminotransferase 9 U/L (6-35); Albumin Level 3.8 g/dL (3.5-5.1); Alkaline Phosphatase 88 U/L (38-126); Anion Gap 4 mmol/L (4-12); Aspartate Amino Transferase 45 U/L (14-36); Bilirubin,Total 0.4 mg/dL (0.2-1.3); Blood Urea Nitrogen 18 mg/dL (7-17); Calcium 9.1 mg/dL (8.4-10.2); Carbon Dioxide 34 mmol/L (22-30); Chloride 102 mmol/L (98-107); Estimated Glomerular Filt Rate > 60; Glucose 88 mg/dL (65-110); Potassium 3.9 mmol/L (3.4-5.0); Sodium 140 mmol/L (137-145); Total Protein 7.1 g/dL (6.3-8.2)
[2025-09-14 18:18] LABS: Ferritin 17.60 ng/mL (11.1-264)
[2025-09-14 19:17] LABS: Vitamin B12 650.0 pg/mL (239-931)
== END 2025-09-14 14:10 | disposition home or self-care (01) ==
PROVIDERS: PCP Internal Medicine; Visit Provider Internal Medicine
DX: E44.0 Moderate protein-calorie malnutrition (principal); I10 Essential (primary) hypertension; I25.10 Atherosclerotic heart disease of native coronary artery without angina pectoris; D50.0 Iron deficiency anemia secondary to blood loss (chronic)
CPT/HCPCS: 36415; 80053; 82607; 82728; 82746; 85025